=== PATIENT | female | born 1945 | race Caucasian/White ===

== ENCOUNTER 2019-12-25 10:44 | Emergency (ER) | payer MEDICARE, OTHER ==
[2019-12-25] MEDS ORDERED: Sodium Chloride 0.9% 10 ML Syringe FLUSH PRN (11:06)
[2019-12-25] MEDS ORDERED: Aspirin 81 MG Tab.Chew PO ONE (11:07)
[2019-12-25] MEDS ORDERED: Metoprolol Tartrate 5 MG/5 ML SDV IVPUSH ONE (11:26)
--- NOTE | 2019-12-25 11:26 | EDM.PDOC ---
ED HPI GENERAL MEDICAL PROBLEM - General Chief Complaint: Chest Pain Stated Complaint: CHEST PAIN Time Seen by Provider: 12/25/19 10:50 Source of Information: Reports: Patient History Limitations: Reports: No Limitations - History of Present Illness INITIAL COMMENTS - FREE TEXT/NARRATIVE: Pt. presents to ER with complaints of shortness of breath, L sided chest pain, and discomfort in the L upper extremity. Pt. states that she was cooking at the onset of the symptoms. Pt. states that the symptoms started with shortness of breath and chest discomfort, and the arm pain started shortly thereafter. Pt. states that by the time she got to ER, the symptoms were completely resolved. She states that she is feeling normal on initial exam. Pt. states that she was lightheaded, and states that she often experiences lightheadedness when she is bending over. Pt. states that she has been experiencing intermittent shortness of breath for several months. She complains of NELSON. Denies any leg swelling, palpitations, or chest pain prior to today. Pt. has a history of CAD and has a drug eluting stent in the L circumflex. She states that she failed a stress test prior to this. This was approx. 5 years ago. She states that she had 50% blockage to another vessel at that time as well. Pt. has a history of HTN and is on Toprol XL 25mg daily. She states that she took her medication this AM. Pt. also has a history of hyperlipidemia. She states that the discomfort today is was sharp, and did not radiate into her back or neck. She was not diaphoretic. Onset: Today Onset Date: 12/25/19 Location: Reports: Chest - Related Data Allergies Allergy/AdvReac Type Severity Reaction Status Date / Time No Known Drug Allergies Allergy Other Verified 12/25/19 11:02 Home Meds: Home Meds Aspirin [Ecotrin] 81 mg PO DAILY 09/26/14 [History] Multivitamin [Multi Vitamin Daily] 1 each PO DAILY 09/26/14 [History] EPINEPHrine [Epipen] 0.3 mg IM ASDIRECTED PRN 11/30/15 [History] Metoprolol Succinate [Toprol XL] 12.5 mg PO DAILY 11/30/15 [History] Nitroglycerin [Nitrostat] 0.4 mg SL Q5M PRN 11/30/15 [History] Ticagrelor [Brilinta] 90 mg PO BID 11/30/15 [History] atorvaSTATin Calcium [Atorvastatin Calcium] 80 mg PO BEDTIME 11/30/15 [History] ED ROS GENERAL - Review of Systems Review Of Systems: See Below Constitutional: Reports: No Symptoms HEENT: Reports: No Symptoms Respiratory: Reports: Shortness of Breath Cardiovascular: Reports: Chest Pain, Dyspnea on Exertion, Lightheadedness Endocrine: Reports: No Symptoms GI/Abdominal: Reports: No Symptoms : Reports: No Symptoms Musculoskeletal: Reports: Arm Pain Skin: Reports: No Symptoms Neurological: Reports: No Symptoms Psychiatric: Reports: No Symptoms Hematologic/Lymphatic: Reports: No Symptoms Immunologic: Reports: No Symptoms ED EXAM, GENERAL - Physical Exam Exam: See Below Exam Limited By: No Limitations General Appearance: Alert, WD/WN, No Apparent Distress Eye Exam: Bilateral Eye: EOMI, PERRL Head: Atraumatic, Normocephalic Neck: Normal Inspection, Supple, Non-Tender, Full Range of Motion Respiratory/Chest: No Respiratory Distress, Lungs Clear, Normal Breath Sounds, No Accessory Muscle Use, Chest Non-Tender Cardiovascular: Normal Peripheral Pulses, Regular Rate, Rhythm, No Edema, No JVD , No Murmur Peripheral Pulses: 4+: Radial (L) GI/Abdominal: Normal Bowel Sounds, Soft, Non-Tender, No Organomegaly, No Distention, No Mass (Female) Exam: Deferred Rectal (Female) Exam: Deferred Back Exam: Normal Inspection, Full Range of Motion Extremities: Normal Inspection, Normal Range of Motion, Non-Tender, No Pedal Edema, Normal Capillary Refill Neurological: Alert, Oriented, CN II-XII Intact, Normal Cognition, Normal Gait, Normal Reflexes, No Motor/Sensory Deficits Psychiatric: Normal Affect, Normal Mood Skin Exam: Warm, Dry, Intact, Normal Color, No Rash Lymphatic: No Adenopathy EKG INTERPRETATION Rhythm: NSR [place]: Normal P-Wave: Present QRS: Normal ST-T: Normal QT: Normal Course - Vital Signs Last Recorded V/S: Last Vital Signs Temp 36.8 C 12/25/19 10:48 Pulse 66 12/25/19 11:33 Resp 12 12/25/19 11:27 BP 198/100 H 12/25/19 11:33 Pulse Ox 98 12/25/19 11:27 - Orders/Labs/Meds Orders: Active Orders 24 hr Category Date Time Status EKG Documentation Completion [RC] STAT Care 12/25/19 11:06 Active COMPREHENSIVE METABOLIC PN,CMP [CHEM] Stat Lab 12/25/19 11:14 Received MAGNESIUM [CHEM] Stat Lab 12/25/19 11:14 Received PRO B-TYPE NATRIUR PEPT,BNPPRO [CHEM] Stat Lab 12/25/19 11:14 Received TSH ULTRASENSITIVE [CHEM] Stat Lab 12/25/19 11:14 Received Heparin Sodium/0.45% NaCl [Heparin 25,000 Units in 1/2 Med 12/25/19 12:15 Active NS 500 ML] 25,000 units in 500 ml IV STAT Nitroglycerin/D5W [Nitroglycerin 25 MG/D5W 250 ML] Med 12/25/19 12:15 Active 25 mg in 250 ml IV TITRATE Sodium Chloride 0.9% [Saline Flush] Med 12/25/19 11:06 Active 10 ml FLUSH ASDIRECTED PRN Peripheral IV Insertion Adult [OM.PC] Routine Oth 12/25/19 11:07 Ordered Medication Orders Nitroglycerin/Dextrose (Nitroglycerin 25 Mg/D5w 250 Ml) 25 mg in 250 mls @ 6 mls/hr IV TITRATE KAYLEEN; Protocol Heparin Sodium/Sodium Chloride (Heparin 25,000 Units In 1/2 Ns 500 Ml) 25,000 units in 500 mls @ 20 mls/hr IV STAT KAYLEEN; Protocol Sodium Chloride (Saline Flush) 10 ml FLUSH ASDIRECTED PRN PRN Reason: Keep Vein Open Labs: Laboratory Tests 12/25/19 12/25/19 12/25/19 Range/Units 11:14 11:14 12:11 WBC 7.0 (4.0-10.0) x10^3/uL RBC 4.41 (4.00-5.50) x10^6/uL Hgb 13.7 (12.0-16.0) g/dL Hct 40.2 (33.0-47.0) % MCV 91.2 (78.0-93.0) fL MCH 31.1 (26.0-32.0) pg MCHC 34.1 (32.0-36.0) g/dL RDW Coeff of Radha 13.4 (10.0-15.0) % Plt Count 277 (130-400) x10^3/uL Neut % (Auto) 43.1 L (50.0-80.0) % Lymph % (Auto) 43.7 (25.0-50.0) % Hinds % (Auto) 11.8 H (2.0-11.0) % Eos % (Auto) 1.0 (0.0-4.0) % Baso % (Auto) 0.4 (0.2-1.2) % PT 10.3 (10.0-12.8) SEC INR 0.9 L (2.0-3.5) D-Dimer, Quantitative 0.49 (<=0.58) mg/LFEU POC Troponin I 0.02 (0.00-0.08) ng/mL Meds: Medications Generic Name Dose Route Start Last Admin Trade Name Freq PRN Reason Stop Dose Admin Nitroglycerin/Dextrose 25 mg in 250 mls @ 6 mls/hr 12/25/19 12:15 Nitroglycerin 25 Mg/D5w 250 Ml IV TITRATE KAYLEEN Protocol 10 MCG/MIN Heparin Sodium/Sodium Chloride 25,000 units in 500 mls @ 20 mls/hr 12/25/19 12 :15 Heparin 25,000 Units In 1/2 Ns 500 Ml IV STAT KAYLEEN Protocol Sodium Chloride 10 ml 12/25/19 11:06 Saline Flush FLUSH ASDIRECTED PRN Keep Vein Open Discontinued Medications Generic Name Dose Route Start Last Admin Trade Name Freq PRN Reason Stop Dose Admin Aspirin 324 mg 12/25/19 11:07 12/25/19 10:55 Aspirin PO 12/25/19 11:08 324 mg ONETIME ONE Administration Heparin Sodium (Porcine) 4,000 units 12/25/19 12:02 12/25/19 12:38 Heparin Sodium IVPUSH 12/25/19 12:03 4,000 units .BOLUS ONE Administration Metoprolol Tartrate 5 mg 12/25/19 11:26 12/25/19 11:33 Lopressor IVPUSH 12/25/19 11:27 5 mg ONETIME ONE Administration Nitroglycerin 0.4 mg 12/25/19 11:40 Nitrostat SL 12/25/19 11:41 ONETIME ONE Departure - Departure Time of Disposition: 12:41 Disposition: DC/Tfer to Acute Hospital 02 Clinical Impression: Unstable angina - Discharge Information Referrals: Janeen La DO [Primary Care Provider] - Forms: ED Department Discharge Sepsis Event Note - Evaluation Sepsis Screening Result: No Definite Risk - Focused Exam Vital Signs: Vital Signs Temp Pulse Pulse Resp BP BP Pulse Ox 12/25/19 11:33 66 198/100 H 12/25/19 11:27 64 12 198/100 H 98 12/25/19 10:48 36.8 C 82 14 196/89 H 98 Date Exam was Performed: 12/25/19 Time Exam was Performed: 12:40 - Problem List Review Problem List Initiated/Reviewed/Updated: Yes - My Orders Last 24 Hours: My Active Orders 12/25/19 11:06 EKG Documentation Completion [RC] STAT Sodium Chloride 0.9% [Saline Flush] 10 ml FLUSH ASDIRECTED PRN 12/25/19 11:07 Peripheral IV Insertion Adult [OM.PC] Routine 12/25/19 11:14 COMPREHENSIVE METABOLIC PN,CMP [CHEM] Stat MAGNESIUM [CHEM] Stat PRO B-TYPE NATRIUR PEPT,BNPPRO [CHEM] Stat TSH ULTRASENSITIVE [CHEM] Stat 12/25/19 12:15 Heparin Sodium/0.45% NaCl [Heparin 25,000 Units in 1/2 NS 500 ML] 25,000 units in 500 ml IV STAT Nitroglycerin/D5W [Nitroglycerin 25 MG/D5W 250 ML] 25 mg in 250 ml IV TITRATE - Assessment/Plan Last 24 Hours: My Active Orders 12/25/19 11:06 EKG Documentation Completion [RC] STAT Sodium Chloride 0.9% [Saline Flush] 10 ml FLUSH ASDIRECTED PRN 12/25/19 11:07 Peripheral IV Insertion Adult [OM.PC] Routine 12/25/19 11:14 COMPREHENSIVE METABOLIC PN,CMP [CHEM] Stat MAGNESIUM [CHEM] Stat PRO B-TYPE NATRIUR PEPT,BNPPRO [CHEM] Stat TSH ULTRASENSITIVE [CHEM] Stat 12/25/19 12:15 Heparin Sodium/0.45% NaCl [Heparin 25,000 Units in 1/2 NS 500 ML] 25,000 units in 500 ml IV STAT Nitroglycerin/D5W [Nitroglycerin 25 MG/D5W 250 ML] 25 mg in 250 ml IV TITRATE Plan: Pt. will be transferred to [facility]. She was started on a nitro drip , as she had relief of her chest pain with oral NTG. Pt. was started on 10mcg/ min. and will be titrated until she is pain free. Pt. was heparinized with a 4000u heparin bolus and a 1000u/hr drip. I spoke with Dr. Mcwilliams who accepts the patient in transfer. Pt. will be transported via [facility] ground ambulance.
[2019-12-25] MEDS ORDERED: Nitroglycerin 0.4 MG Tab.SL SL ONE (11:40)
[2019-12-25] MEDS ORDERED: Heparin Sodium 5,000 Units/ML Vial IVPUSH ONE (12:02)
[2019-12-25] MEDS ORDERED: Heparin Sodium/0.45% NaCl 25,000 UNITS/500 ML BAG IV SCH (12:15)
[2019-12-25] MEDS ORDERED: Nitroglycerin/D5W 25 MG/250 ML BOTTLE IV SCH (12:15)
[2019-12-25 13:06] VITALS: BP 173/85; PULSE 64
[2019-12-25 13:38] LABS: ANION GAP 14.8 mmol/L (10-20); CHLORIDE,CL 102 mmol/L (98-107); SODIUM,NA 139 mmol/L (136-145)
== END 2019-12-25 13:45 | disposition short-term general hospital (02) ==
LOC: VM.ED 10:44
DX: I20.0 Unstable angina (principal); Z79.82 Long term (current) use of aspirin; Z79.899 Other long term (current) drug therapy
CPT/HCPCS: 36415; 80053; 83735; 83880; 84443; 84484; 85025; 85379; 85610; 93005; 93010; 96365; 96368; 99283; 99285; A9270; J1644; J3490

== ENCOUNTER 2019-12-30 21:08 | Observation (INO) | payer MEDICARE, OTHER ==
[2019-12-30] MEDS ORDERED: Aspirin 81 MG Tab.Chew PO STA (22:02)
[2019-12-30] MEDS ORDERED: cloNIDine 0.1 MG Tab PO ONE (22:35)
[2019-12-30] MEDS ORDERED: amLODIPine 5 MG Tab PO STA (22:35)
--- NOTE | 2019-12-30 22:56 | EDM.PDOC ---
ED HPI GENERAL MEDICAL PROBLEM - General Chief Complaint: Cardiovascular Problem Stated Complaint: BP Time Seen by Provider: 12/30/19 22:10 Source of Information: Reports: Patient History Limitations: Reports: No Limitations - History of Present Illness INITIAL COMMENTS - FREE TEXT/NARRATIVE: Patient comes emergency department today from home with complaints of high blood pressure and "funny" numbness sensation to her left arm. Patient recently was seen in the emergency department here in [place] for similar symptomology of chest pain and hypertension. She was transferred for [facility] for further evaluation and was discharged next morning. She is to follow- up with her primary care provider for hypertension management. She has been watching her blood pressure closely over the past few days checking it twice a day. Gigi her son called her and asked her what her blood pressure was so she checked it and she noticed it was quite high. She then started to get quite worried. Her blood pressure at that time was 192/93 and went up to 202 sustolically with a pulse rate of 76. Then became quite anxious. She started feeling some tightness "funny" numbness sensation in her left arm. No pain in her chest. No pressure. No sharp shooting stabbing pain. She did complain of some shortness of breath but this is something that has been going more frequently over the past few weeks with physical activity. She did walk 1/2 mile on the treadmill today without any CP or radiation of numbness SOB or diaphoresis. No diaphoresis. No nausea no vomiting. No palpitations. No weakness dizziness lightheadedness. No syncope. She has no headache no visual disturbances. NO Paresthesias of the upper or lower extremities. No nausea vomiting fever chills. No hematuria dysuria urinary frequency. No diarrhea. Not have any medication changes in her hospitalization in [place]. She was set up for a [facility]. She has not had any chest pain or arm sensation over the past few days but SOB with increased physical activity although not when walking on the treadmill. - Related Data Allergies Allergy/AdvReac Type Severity Reaction Status Date / Time No Known Drug Allergies Allergy Other Verified 12/30/19 22:25 Home Meds: Home Meds Aspirin [Ecotrin] 81 mg PO DAILY 09/26/14 [History] Multivitamin [Multi Vitamin Daily] 1 each PO DAILY 09/26/14 [History] Metoprolol Succinate [Toprol XL] 12.5 mg PO DAILY 11/30/15 [History] Nitroglycerin [Nitrostat] 0.4 mg SL Q5M PRN 11/30/15 [History] atorvaSTATin Calcium [Atorvastatin Calcium] 10 mg PO BEDTIME 11/30/15 [History] Past Medical History Cardiovascular History: Reports: CAD, Hypertension, Stents Endocrine/Metabolic History: Reports: Osteopenia - Past Surgical History Cardiovascular Surgical History: Reports: Coronary Artery Stent ED ROS GENERAL - Review of Systems Review Of Systems: Comprehensive ROS is negative, except as noted in HPI. ED EXAM, GENERAL - Physical Exam Exam: See Below Exam Limited By: No Limitations General Appearance: Alert, WD/WN, No Apparent Distress Eye Exam: Bilateral Eye: EOMI, PERRL Ears: Normal External Exam, Normal Canal, Hearing Grossly Normal, Normal TMs Nose: Normal Inspection, Normal Mucosa Throat/Mouth: Normal Inspection, Normal Lips, Normal Oropharynx, Normal Voice, No Airway Compromise Head: Atraumatic, Normocephalic Neck: Normal Inspection, Supple, Non-Tender. No: Carotid Bruit, Lymphadenopathy (L), Lymphadenopathy (R) Respiratory/Chest: No Respiratory Distress, Lungs Clear, Normal Breath Sounds, No Accessory Muscle Use, Chest Non-Tender Cardiovascular: Normal Peripheral Pulses, Regular Rate, Rhythm, No Edema, No Gallop, No JVD, No Murmur, No Rub Peripheral Pulses: 2+: Radial (L), Radial (R), Posterior Tibial (L), Posterior Tibial (R), Dorsalis Pedis (L), Dorsalis Pedis (R) GI/Abdominal: Normal Bowel Sounds, Soft, Non-Tender, No Organomegaly, No Distention Back Exam: Normal Inspection, Full Range of Motion. No: CVA Tenderness (L), CVA Tenderness (R) Extremities: Normal Inspection, Normal Range of Motion, Non-Tender, No Pedal Edema, Normal Capillary Refill Neurological: Alert, Oriented, Normal Cognition, Normal Gait, No Motor/Sensory Deficits Psychiatric: Normal Affect, Normal Mood Skin Exam: Warm, Dry, Intact, Normal Color, No Rash Lymphatic: No Adenopathy EKG INTERPRETATION EKG Date: 12/30/19 Time: 09:25 Rhythm: NSR Rate (Beats/Min): 67 [place]: Normal P-Wave: Present QRS: Normal ST-T: Normal QT: Normal Comparison: No Change Course - Vital Signs Last Recorded V/S: Last Vital Signs Temp 36.6 C 12/30/19 22:27 Pulse 63 12/30/19 23:27 Resp 14 12/30/19 23:27 BP 173/77 H 12/30/19 23:27 Pulse Ox 98 12/30/19 23:27 - Orders/Labs/Meds Orders: Active Orders 24 hr Category Date Time Status EKG 12 Lead [EKG Documentation Completion] [RC] STAT Care 12/30/19 21:25 Active EKG Documentation Completion [RC] STAT Care 12/31/19 00:34 Ordered Lactated Ringers [Ringers, Lactated] 1,000 ml Med 12/31/19 00:39 Ordered IV ONETIME Sodium Chloride 0.9% [Saline Flush] Med 12/30/19 23:45 Active 10 ml FLUSH ASDIRECTED PRN Peripheral IV Insertion Adult [OM.PC] Stat Oth 12/30/19 23:45 Ordered Medication Orders Lactated Ringer's (Ringers, Lactated) 1,000 mls @ 999 mls/hr IV ONETIME ONE Stop: 12/31/19 01:39 Sodium Chloride (Saline Flush) 10 ml FLUSH ASDIRECTED PRN PRN Reason: Keep Vein Open Labs: Laboratory Tests 12/30/19 12/30/19 12/30/19 Range/Units 21:40 22:40 22:40 WBC 7.2 (4.0-10.0) x10^3/uL RBC 4.24 (4.00-5.50) x10^6/uL Hgb 13.0 (12.0-16.0) g/dL Hct 38.6 (33.0-47.0) % MCV 91.0 (78.0-93.0) fL MCH 30.7 (26.0-32.0) pg MCHC 33.7 (32.0-36.0) g/dL RDW Coeff of Radha 13.2 (10.0-15.0) % Plt Count 244 (130-400) x10^3/uL Neut % (Auto) 32.0 L (50.0-80.0) % Lymph % (Auto) 55.7 H (25.0-50.0) % Posey % (Auto) 10.2 (2.0-11.0) % Eos % (Auto) 1.7 (0.0-4.0) % Baso % (Auto) 0.4 (0.2-1.2) % Sodium 140 (136-145) mmol/L Potassium 4.2 (3.5-5.1) mmol/L Chloride 103 (98-107) mmol/L Carbon Dioxide 26 (21-32) mmol/L Anion Gap 15.2 (10-20) mmol/L BUN 12 (7-18) mg/dL Creatinine 0.8 (0.55-1.02) mg/dL Est Cr Clr Drug Dosing 57.75 mL/min Estimated GFR (MDRD) > 60 Glucose 99 (74-106) mg/dL Calcium 9.1 (8.5-10.1) mg/dL Corrected Calcium 9.18 (8.5-10.1) mg/dL Total Bilirubin 0.3 (0.2-1.0) mg/dL AST 40 H (15-37) U/L ALT 59 (14-59) U/L Alkaline Phosphatase 76 (46-116) U/L Troponin I < 0.017 (<=0.056) ng/mL NT-Pro-B Natriuret Pep 175 H (<=125) pg/mL Total Protein 7.4 (6.4-8.2) g/dL Albumin 3.9 (3.4-5.0) g/dL Globulin 3.5 Albumin/Globulin Ratio 1.11 Urine Color (YELLOW) Urine Appearance (CLEAR) Urine pH (5.0-8.0) Ur Specific [place] Urine Protein (NEGATIVE) mg/dL Urine Glucose (UA) (NEGATIVE) mg/dL Urine Ketones (NEGATIVE) mg/dL Urine Occult Blood (NEGATIVE) Urine Nitrite (NEGATIVE) Urine Bilirubin (NEGATIVE) Urine Urobilinogen (0.2) EU/dL Ur Leukocyte Esterase (NEGATIVE) Urine RBC (NOT SEEN) /HPF Urine WBC (NOT SEEN) /HPF Ur Squamous Epith Cells (NEGATIVE) /HPF Urine Bacteria (NEGATIVE) /HPF Urine Mucus (NEGATIVE) /LPF 12/30/19 Range/Units 22:50 WBC (4.0-10.0) x10^3/uL RBC (4.00-5.50) x10^6/uL Hgb (12.0-16.0) g/dL Hct (33.0-47.0) % MCV (78.0-93.0) fL MCH (26.0-32.0) pg MCHC (32.0-36.0) g/dL RDW Coeff of Radha (10.0-15.0) % Plt Count (130-400) x10^3/uL Neut % (Auto) (50.0-80.0) % Lymph % (Auto) (25.0-50.0) % Posey % (Auto) (2.0-11.0) % Eos % (Auto) (0.0-4.0) % Baso % (Auto) (0.2-1.2) % Sodium (136-145) mmol/L Potassium (3.5-5.1) mmol/L Chloride (98-107) mmol/L Carbon Dioxide (21-32) mmol/L Anion Gap (10-20) mmol/L BUN (7-18) mg/dL Creatinine (0.55-1.02) mg/dL Est Cr Clr Drug Dosing mL/min Estimated GFR (MDRD) Glucose (74-106) mg/dL Calcium (8.5-10.1) mg/dL Corrected Calcium (8.5-10.1) mg/dL Total Bilirubin (0.2-1.0) mg/dL AST (15-37) U/L ALT (14-59) U/L Alkaline Phosphatase (46-116) U/L Troponin I (<=0.056) ng/mL NT-Pro-B Natriuret Pep (<=125) pg/mL Total Protein (6.4-8.2) g/dL Albumin (3.4-5.0) g/dL Globulin Albumin/Globulin Ratio Urine Color Light yellow (YELLOW) Urine Appearance Clear (CLEAR) Urine pH 5.5 (5.0-8.0) Ur Specific [place] 1.010 Urine Protein Negative (NEGATIVE) mg/dL Urine Glucose (UA) Negative (NEGATIVE) mg/dL Urine Ketones Negative (NEGATIVE) mg/dL Urine Occult Blood Negative (NEGATIVE) Urine Nitrite Negative (NEGATIVE) Urine Bilirubin Negative (NEGATIVE) Urine Urobilinogen 0.2 (0.2) EU/dL Ur Leukocyte Esterase Negative (NEGATIVE) Urine RBC 0-5 (NOT SEEN) /HPF Urine WBC Not seen (NOT SEEN) /HPF Ur Squamous Epith Cells Occasional H (NEGATIVE) /HPF Urine Bacteria Not seen (NEGATIVE) /HPF Urine Mucus Rare H (NEGATIVE) /LPF Meds: Medications Generic Name Dose Route Start Last Admin Trade Name Tuan PRN Reason Stop Dose Admin Lactated Ringer's 1,000 mls @ 999 mls/hr 12/31/19 00:39 Ringers, Lactated IV 12/31/19 01:39 ONETIME ONE Sodium Chloride 10 ml 12/30/19 23:45 Saline Flush FLUSH ASDIRECTED PRN Keep Vein Open Discontinued Medications Generic Name Dose Route Start Last Admin Trade Name Tuan PRN Reason Stop Dose Admin Amlodipine Besylate 5 mg 12/30/19 22:35 12/30/19 22:47 Norvasc PO 12/30/19 22:36 5 mg NOW STA Administration Aspirin 324 mg 12/30/19 22:02 12/30/19 22:09 Aspirin PO 12/30/19 22:03 324 mg ONETIME STA Administration Clonidine HCl 0.1 mg 12/30/19 22:35 12/30/19 22:47 Catapres PO 12/30/19 22:36 0.1 mg ONETIME ONE Administration Nitroglycerin 0.4 mg 12/30/19 23:45 Nitrostat SL 12/30/19 23:46 ONETIME ONE Ondansetron HCl 4 mg 12/31/19 00:17 Zofran IV 12/31/19 00:18 ONETIME ONE - Re-Assessments/Exams Free Text/Narrative Re-Assessment/Exam: 12/30/19 23:36 Aspirin given orally. EKG negative for ST elevation. Her BP did stay quite elevated while in the ED. I did review her medication list and she is really not on anything primarily for hypertension just a slash of Metoprolol Succ. Her systolic did stay in the 210s. Labs are really unremarkable with a normal Creat/BUN no protein in the urine. No signs of end organ damage otherwise. BNp 170s I did give her a dose of Amlodipine as well as Clonidine in the ED. Despite the ACEP stance on asymptomatic hypertension in the ED I did review her BP reading from home and she has been trending 140s systolically up to 202 systolically with 70s-95 diastolically. 12/30/19 23:49 The patient has not complained of any chest pain shortness of breath or the sensation in her left arm for the entirety of her ER visit. Her blood pressure is improved down to 171/87 with a heart rate in the mid 60s. Although she has developed this left arm numbness sensation. No pain into her back or her jaw. No diaphoresis. I did review her discharge summary from [facility] on 2019. Where she had trending of her troponin which was negative. She only required 1 single dose of amlodipine and 1 dose of hydralazine during the night and her blood pressure then stayed in the 130s-90s. There was quite a bit of concern for this patient's anxiety causing her hypertension although it is known that she has a left circumflex drug-eluting stent as well as another vessel with approximate 50% narrowing. She has not had her stress test completed since discharge. I will try a dose of nitro to see if this resolves the left arm sensation. Repeat troponin as well at the three hour time period. Patient is comfortable with this plan. 12/31/19 00:40 The patient did drop her blood pressure to the 70s systolically after the nitro and Hrt rate to the 50s. No syncope. With fluids bolus she recovered her blood pressure. No arm pain. Repeat EKG no ST elevation or depression. I do have concerns for hypertensive urgency causing coronary strain or angina. With the known history of vessel narrowing without further eval and this presentation I wonder if this isn't right heart vs cardiac strain causing angina due to the severe hypertension. I called and spoke with the hospitalist performance improvement consultant at [facility] in [place] Dr. Patel. HPI ER Course findings and concerns were relayed to him. He agrees with my concerns and at this time no transfer unless things change control the blood pressure and trend her troponins and see where it goes. I discussed the findings with the patient and my concerns and the consultation with the hospitalist she is comfortable with the plan and her questions are answered. She was also aware of the option for transfer at this time was also offered from [facility] but she is comfortable and okay with the plan to stay here and if any concerns arise will consult with [place] again. Her questions were answered and she is comfortable with this plan. Departure - Departure Time of Disposition: 00:59 Disposition: Refer to Observation Clinical Impression: Hypertensive urgency, Anginal pain Referrals: Janeen La DO [Primary Care Provider] - Forms: ED Department Discharge Sepsis Event Note - Evaluation Sepsis Screening Result: No Definite Risk - Focused Exam Vital Signs: Vital Signs Temp Pulse Resp BP BP Pulse Ox 12/30/19 23:27 63 14 173/77 H 98 12/30/19 22:57 65 14 188/98 H 99 12/30/19 22:47 220/110 H 12/30/19 22:32 75 12 220/110 H 95 12/30/19 22:27 36.6 C 98 16 231/124 H 98 12/30/19 22:11 68 11 L 182/96 H 95 12/30/19 21:50 77 16 174/89 H 98 12/30/19 21:30 67 17 193/92 H 97 Date Exam was Performed: 12/31/19 Time Exam was Performed: 00:40 - Problem List Review Problem List Initiated/Reviewed/Updated: Yes - My Orders Last 24 Hours: My Active Orders 12/30/19 21:25 EKG 12 Lead [EKG Documentation Completion] [RC] STAT 12/30/19 23:45 Sodium Chloride 0.9% [Saline Flush] 10 ml FLUSH ASDIRECTED PRN Peripheral IV Insertion Adult [OM.PC] Stat 12/31/19 00:34 EKG Documentation Completion [RC] STAT 12/31/19 00:39 Lactated Ringers [Ringers, Lactated] 1,000 ml IV ONETIME - Assessment/Plan Admission H&P: Please use this note as an admission H&P Last 24 Hours: My Active Orders 12/30/19 21:25 EKG 12 Lead [EKG Documentation Completion] [RC] STAT 12/30/19 23:45 Sodium Chloride 0.9% [Saline Flush] 10 ml FLUSH ASDIRECTED PRN Peripheral IV Insertion Adult [OM.PC] Stat 12/31/19 00:34 EKG Documentation Completion [RC] STAT 12/31/19 00:39 Lactated Ringers [Ringers, Lactated] 1,000 ml IV ONETIME Assessment:: Hypertensive urgency, No evidence of end organ damage. Not currently on anything for blood pressure. Is on Metoprolol. Angina, most likely due to the hypertensive urgency normal EKGs and troponins CAD Hx of Hyperlipidemia Hx of Cardiac stent. Plan: Admit OBS my service. Hypertensive urgency: Start amlodipine 5mg po qd. Hydralazine 10mg q6hrs IVP for SBP > 180mmhg. Telemetry. Angina: daily aspirin will trend troponin and also EKG in the am. Hx Hyperlipidemia continue atorvastatin. Lipid panel in the morning. Hx CAD with stenting not currently on plavix or Brilinta. Continue on previous therapies. If any problems will contact [place].
[2019-12-30 23:13] LABS: ANION GAP 15.2 mmol/L (10-20); CHLORIDE,CL 103 mmol/L (98-107); SODIUM,NA 140 mmol/L (136-145)
[2019-12-30] MEDS ORDERED: Sodium Chloride 0.9% 10 ML Syringe FLUSH PRN (23:45)
[2019-12-30] MEDS ORDERED: Nitroglycerin 0.4 MG Tab.SL SL ONE (23:45)
[2019-12-31] MEDS ORDERED: Ondansetron 4 MG/2 ML SDV IV ONE (00:17)
[2019-12-31] MEDS ORDERED: Lactated Ringers 1,000 ML IV ONE (00:39)
[2019-12-31] MEDS ORDERED: hydrALAZINE 20 MG/ML SDV IVPUSH PRN (01:39)
[2019-12-31 03:50] LABS: PTT,PARTIAL THROMBOPLSTIN TIME 21.4 SEC (24.0-36.0)
[2019-12-31] MEDS ORDERED: Multivitamins with Iron/Calcium/Folic Acid/Minerals Tab PO SCH (08:00)
[2019-12-31] MEDS ORDERED: Aspirin 81 MG Tab.EC PO SCH (08:00)
[2019-12-31] MEDS ORDERED: Metoprolol Succinate 25 MG Tab.ER PO SCH (08:00)
--- NOTE | 2019-12-31 09:01 | CR ---
[id number] RAD/RAD Chest PA And Lateral EXAM: FRONTAL AND LATERAL CHEST INDICATION: Shortness of breath and chest pain. COMPARISON: CT November 03, 2015. DISCUSSION: Mild peripheral left base atelectasis or infiltrates are suggested. The right lung is clear. The heart is normal in size. Left axillary clips. IMPRESSION: 1. Mild peripheral left base infiltrates and/or atelectasis are suggested. Lorenzo Mendez MD 12/31/19 0900 Thank you for allowing us to participate in the care of your patient.
[2019-12-31 17:53] VITALS: BP 133/58; PULSE 63
--- NOTE | 2019-12-31 19:04 | PCM.DCSUM1 ---
Discharge Summary - Hospital Course Free Text/Narrative:: Patient was admitted in the hospital under observation for hypertensive urgency without any evidence of end organ damage and questionable angina. She was not heparinized as she did not have any chest pain but had some vague left arm intermittent numbness. She does have a history of a circumflex stent drug- eluting as well as 50% narrowing of another coronary vessel unknown at the time. He is supposed to be having a Lexiscan in the near future. She was started on amlodipine in the emergency department for her quite high blood pressure documented of 220/110. She had not previously been on any blood pressure medications despite being recently hospitalized for hypertensive urgency as well. She is currently only on 12.5 mg of metoprolol succinate following cardiac stenting. We trended her troponin throughout the night in the morning and her troponin stayed less than 0.017. She did not require any IV hydralazine for systolic blood pressures over 180. She did not have any chest pain shortness of breath paresthesias or numbness to her left arm during her hospitalization. Her blood pressure was well controlled with a single dose of 5 mg amlodipine. She was monitored most of the day without any complaints. Her blood pressure improved to the 130s over 80s. Cholesterol panel shows a triglyceride of 77 cholesterol 128 LDL 67 and HDL 46. There was some concern of her previous hospitalization at [facility] in [place] that her high blood pressure could be related to anxiety. Although I do not see any evidence of anxiety at this time she has responded quite well to the amlodipine. We will work on getting her Evelia scan set up for her and she does have a follow-up with her primary care on Sunday Dr. Hannah La. Patient is comfortable with this plan and her questions are answered. We will discharge her home at this time she is comfortable with this plan Hypertensive urgency: Resolved. Continue amlodipine 5 mg p.o. daily. Angina: No evidence during the hospitalization normal troponin trending. Continue with the aspirin therapy at home. Continue with the metoprolol at home. We will work on getting your Evelia scan set up. Hx Hyperlipidemia continue atorvastatin. Lipid panel is well controlled. Although she is on a rather low dose of atorvastatin 10 mg at at bedtime. Consideration for maximization of therapy despite numbers as recommended by [employer] would be recommended for the prevention of further plaque deposition. Hx CAD with stenting not currently on plavix or Brilinta. Continue on previous therapies. HPI Initial Comments: Patient comes emergency department today from home with complaints of high blood pressure and "funny" numbness sensation to her left arm. Patient recently was seen in the emergency department here in [place] for similar symptomology of chest pain and hypertension. She was transferred for [facility] for further evaluation and was discharged next morning. She is to follow- up with her primary care provider for hypertension management. She has been watching her blood pressure closely over the past few days checking it twice a day. Gigi her son called her and asked her what her blood pressure was so she checked it and she noticed it was quite high. She then started to get quite worried. Her blood pressure at that time was 192/93 and went up to 202 sustolically with a pulse rate of 76. Then became quite anxious. She started feeling some tightness "funny" numbness sensation in her left arm. No pain in her chest. No pressure. No sharp shooting stabbing pain. She did complain of some shortness of breath but this is something that has been going more frequently over the past few weeks with physical activity. She did walk 1/2 mile on the treadmill today without any CP or radiation of numbness SOB or diaphoresis. No diaphoresis. No nausea no vomiting. No palpitations. No weakness dizziness lightheadedness. No syncope. She has no headache no visual disturbances. NO Paresthesias of the upper or lower extremities. No nausea vomiting fever chills. No hematuria dysuria urinary frequency. No diarrhea. Not have any medication changes in her hospitalization in [place]. She was set up for a Lexiscan. She has not had any chest pain or arm sensation over the past few days but SOB with increased physical activity although not when walking on the treadmill. - Discharge Data Discharge Date: 12/31/19 Discharge Disposition: Home, Self-Care 01 Condition: Good - Referral to Home Health Primary Care Physician: Janeen La, DO - Patient Instructions Diet: Heart Healthy Diet Driving: May Drive Today Showering/Bathing: May Shower Other/Special Instructions: Continue previous therapies as previous. Continue with blood pressure monitoring. We will work on your stress test tomorrow to get that set up. Start Amlodipine 5mg once a day starting tomorrow. RX to [facility]. Follow up with Dr. Romero La on sunday. Make position changes slowly when standing up until you have been on the blood pressure medication for a while. - Discharge Plan *PRESCRIPTION DRUG MONITORING PROGRAM REVIEWED*: Not Applicable *COPY OF PRESCRIPTION DRUG MONITORING REPORT IN PATIENT YAMILEX: Not Applicable Prescriptions/Med Rec: amLODIPine [Norvasc] 5 mg PO DAILY #30 tab Home Medications: Home Meds Aspirin [Ecotrin] 81 mg PO DAILY 09/26/14 [History] Multivitamin [Multi Vitamin Daily] 1 each PO DAILY 09/26/14 [History] Metoprolol Succinate [Toprol XL] 12.5 mg PO DAILY 11/30/15 [History] Nitroglycerin [Nitrostat] 0.4 mg SL Q5M PRN 11/30/15 [History] atorvaSTATin Calcium [Atorvastatin Calcium] 10 mg PO BEDTIME 11/30/15 [History] Acetaminophen/Diphenhydramine [Tylenol Pm Ex-Strength Caplet] 2 tab PO BEDTIME PRN 12/31/19 [History] Melatonin 3 mg PO BEDTIME PRN 12/31/19 [History] amLODIPine [Norvasc] 5 mg PO DAILY #30 tab 12/31/19 [Rx] diphenhydrAMINE [Benadryl] 25 - 50 mg PO ASDIRECTED PRN 12/31/19 [History] Patient Handouts: Preventing Hypertension Forms: ED Department Discharge Referrals: Janeen La DO [Primary Care Provider] - - Discharge Summary/Plan Comment DC Time >30 min.: Yes - General Info Date of Service: 12/31/19 Admission Dx/Problem (Free Text: Tensive urgency, angina, history of hyperlipidemia, history of coronary artery disease with stenting Subjective Update: The patient has rested well throughout the day. She has had no anxiety type symptoms. She has been eating and drinking appropriately. She has had no chest pain or shortness of breath or difficulty breathing. No paresthesias or numbness to her left arm as she has had previously. No weakness dizziness lightheadedness. No palpitations. No headache. No visual disturbances. No change in the functionality of her upper or lower extremities. No abdominal pain no nausea or vomiting. No hematuria dysuria or urinary frequency. She has slept well throughout the night and actually feels very well. Functional Status: Reports: Pain Controlled - Patient Data Vitals - Most Recent: Last Vital Signs Temp 37.1 C 12/31/19 17:53 Pulse 63 12/31/19 17:53 Resp 12 12/31/19 17:53 BP 133/58 L 12/31/19 17:53 Pulse Ox 95 12/31/19 17:53 Weight - Most Recent: 68.492 kg I&O - Last 24 hours: Intake & Output 12/31/19 12/31/19 12/31/19 06:59 14:59 22:59 Intake Total 120 Balance 120 Lab Results - Last 24 hrs: Laboratory Results - last 24 hr 12/30/19 12/30/19 12/30/19 Range/Units 21:40 22:40 22:40 WBC 7.2 (4.0-10.0) x10^3/uL RBC 4.24 (4.00-5.50) x10^6/uL Hgb 13.0 (12.0-16.0) g/dL Hct 38.6 (33.0-47.0) % MCV 91.0 (78.0-93.0) fL MCH 30.7 (26.0-32.0) pg MCHC 33.7 (32.0-36.0) g/dL RDW Coeff of Radha 13.2 (10.0-15.0) % Plt Count 244 (130-400) x10^3/uL Neut % (Auto) 32.0 L (50.0-80.0) % Lymph % (Auto) 55.7 H (25.0-50.0) % Smith % (Auto) 10.2 (2.0-11.0) % Eos % (Auto) 1.7 (0.0-4.0) % Baso % (Auto) 0.4 (0.2-1.2) % PT (10.0-12.8) SEC INR (2.0-3.5) APTT (24.0-36.0) SEC Sodium 140 (136-145) mmol/L Potassium 4.2 (3.5-5.1) mmol/L Chloride 103 (98-107) mmol/L Carbon Dioxide 26 (21-32) mmol/L Anion Gap 15.2 (10-20) mmol/L BUN 12 (7-18) mg/dL Creatinine 0.8 (0.55-1.02) mg/dL Est Cr Clr Drug Dosing 57.75 mL/min Estimated GFR (MDRD) > 60 Glucose 99 (74-106) mg/dL Calcium 9.1 (8.5-10.1) mg/dL Corrected Calcium 9.18 (8.5-10.1) mg/dL Total Bilirubin 0.3 (0.2-1.0) mg/dL AST 40 H (15-37) U/L ALT 59 (14-59) U/L Alkaline Phosphatase 76 (46-116) U/L Troponin I < 0.017 (<=0.056) ng/mL NT-Pro-B Natriuret Pep 175 H (<=125) pg/mL Total Protein 7.4 (6.4-8.2) g/dL Albumin 3.9 (3.4-5.0) g/dL Globulin 3.5 Albumin/Globulin Ratio 1.11 Triglycerides (0-149) mg/dL Cholesterol (0-199) mg/dL LDL Cholesterol, Calc (0-130) mg/dL HDL Cholesterol (40-59) mg/dL Urine Color (YELLOW) Urine Appearance (CLEAR) Urine pH (5.0-8.0) Ur Specific Leroy Urine Protein (NEGATIVE) mg/dL Urine Glucose (UA) (NEGATIVE) mg/dL Urine Ketones (NEGATIVE) mg/dL Urine Occult Blood (NEGATIVE) Urine Nitrite (NEGATIVE) Urine Bilirubin (NEGATIVE) Urine Urobilinogen (0.2) EU/dL Ur Leukocyte Esterase (NEGATIVE) Urine RBC (NOT SEEN) /HPF Urine WBC (NOT SEEN) /HPF Ur Squamous Epith Cells (NEGATIVE) /HPF Urine Bacteria (NEGATIVE) /HPF Urine Mucus (NEGATIVE) /LPF 12/30/19 12/30/19 12/31/19 Range/Units 22:40 22:50 03:20 WBC (4.0-10.0) x10^3/uL RBC (4.00-5.50) x10^6/uL Hgb (12.0-16.0) g/dL Hct (33.0-47.0) % MCV (78.0-93.0) fL MCH (26.0-32.0) pg MCHC (32.0-36.0) g/dL RDW Coeff of Radha (10.0-15.0) % Plt Count (130-400) x10^3/uL Neut % (Auto) (50.0-80.0) % Lymph % (Auto) (25.0-50.0) % Smith % (Auto) (2.0-11.0) % Eos % (Auto) (0.0-4.0) % Baso % (Auto) (0.2-1.2) % PT 10.7 (10.0-12.8) SEC INR 0.9 L (2.0-3.5) APTT 21.4 L (24.0-36.0) SEC Sodium (136-145) mmol/L Potassium (3.5-5.1) mmol/L Chloride (98-107) mmol/L Carbon Dioxide (21-32) mmol/L Anion Gap (10-20) mmol/L BUN (7-18) mg/dL Creatinine (0.55-1.02) mg/dL Est Cr Clr Drug Dosing mL/min Estimated GFR (MDRD) Glucose (74-106) mg/dL Calcium (8.5-10.1) mg/dL Corrected Calcium (8.5-10.1) mg/dL Total Bilirubin (0.2-1.0) mg/dL AST (15-37) U/L ALT (14-59) U/L Alkaline Phosphatase (46-116) U/L Troponin I < 0.017 (<=0.056) ng/mL NT-Pro-B Natriuret Pep (<=125) pg/mL Total Protein (6.4-8.2) g/dL Albumin (3.4-5.0) g/dL Globulin Albumin/Globulin Ratio Triglycerides (0-149) mg/dL Cholesterol (0-199) mg/dL LDL Cholesterol, Calc (0-130) mg/dL HDL Cholesterol (40-59) mg/dL Urine Color Light yellow (YELLOW) Urine Appearance Clear (CLEAR) Urine pH 5.5 (5.0-8.0) Ur Specific Leroy 1.010 Urine Protein Negative (NEGATIVE) mg/dL Urine Glucose (UA) Negative (NEGATIVE) mg/dL Urine Ketones Negative (NEGATIVE) mg/dL Urine Occult Blood Negative (NEGATIVE) Urine Nitrite Negative (NEGATIVE) Urine Bilirubin Negative (NEGATIVE) Urine Urobilinogen 0.2 (0.2) EU/dL Ur Leukocyte Esterase Negative (NEGATIVE) Urine RBC 0-5 (NOT SEEN) /HPF Urine WBC Not seen (NOT SEEN) /HPF Ur Squamous Epith Cells Occasional H (NEGATIVE) /HPF Urine Bacteria Not seen (NEGATIVE) /HPF Urine Mucus Rare H (NEGATIVE) /LPF 12/31/19 Range/Units 06:30 WBC (4.0-10.0) x10^3/uL RBC (4.00-5.50) x10^6/uL Hgb (12.0-16.0) g/dL Hct (33.0-47.0) % MCV (78.0-93.0) fL MCH (26.0-32.0) pg MCHC (32.0-36.0) g/dL RDW Coeff of Radha (10.0-15.0) % Plt Count (130-400) x10^3/uL Neut % (Auto) (50.0-80.0) % Lymph % (Auto) (25.0-50.0) % Smith % (Auto) (2.0-11.0) % Eos % (Auto) (0.0-4.0) % Baso % (Auto) (0.2-1.2) % PT (10.0-12.8) SEC INR (2.0-3.5) APTT (24.0-36.0) SEC Sodium (136-145) mmol/L Potassium (3.5-5.1) mmol/L Chloride (98-107) mmol/L Carbon Dioxide (21-32) mmol/L Anion Gap (10-20) mmol/L BUN (7-18) mg/dL Creatinine (0.55-1.02) mg/dL Est Cr Clr Drug Dosing mL/min Estimated GFR (MDRD) Glucose (74-106) mg/dL Calcium (8.5-10.1) mg/dL Corrected Calcium (8.5-10.1) mg/dL Total Bilirubin (0.2-1.0) mg/dL AST (15-37) U/L ALT (14-59) U/L Alkaline Phosphatase (46-116) U/L Troponin I < 0.017 (<=0.056) ng/mL NT-Pro-B Natriuret Pep (<=125) pg/mL Total Protein (6.4-8.2) g/dL Albumin (3.4-5.0) g/dL Globulin Albumin/Globulin Ratio Triglycerides 77 (0-149) mg/dL Cholesterol 128 (0-199) mg/dL LDL Cholesterol, Calc 67 (0-130) mg/dL HDL Cholesterol 46 (40-59) mg/dL Urine Color (YELLOW) Urine Appearance (CLEAR) Urine pH (5.0-8.0) Ur Specific Leroy Urine Protein (NEGATIVE) mg/dL Urine Glucose (UA) (NEGATIVE) mg/dL Urine Ketones (NEGATIVE) mg/dL Urine Occult Blood (NEGATIVE) Urine Nitrite (NEGATIVE) Urine Bilirubin (NEGATIVE) Urine Urobilinogen (0.2) EU/dL Ur Leukocyte Esterase (NEGATIVE) Urine RBC (NOT SEEN) /HPF Urine WBC (NOT SEEN) /HPF Ur Squamous Epith Cells (NEGATIVE) /HPF Urine Bacteria (NEGATIVE) /HPF Urine Mucus (NEGATIVE) /LPF Med Orders - Current: Current Medications Amlodipine Besylate (Norvasc) 5 mg PO DAILY [facility] Aspirin (Halfprin) 81 mg PO DAILY [facility] Last Admin: 12/31/19 08:09 Dose: 81 mg Atorvastatin Calcium (Lipitor) 10 mg PO BEDTIME [facility] Hydralazine HCl (Apresoline) 10 mg IVPUSH Q6HR PRN PRN Reason: Hypertension Metoprolol Succinate (Toprol Xl) 12.5 mg PO DAILY [facility] Last Admin: 12/31/19 08:08 Dose: 12.5 mg Multivitamins/Minerals (Thera M Plus) 1 tab PO DAILY [facility] Last Admin: 12/31/19 08:09 Dose: 1 tab Sodium Chloride (Saline Flush) 10 ml FLUSH ASDIRECTED PRN PRN Reason: Keep Vein Open Discontinued Medications Amlodipine Besylate (Norvasc) 5 mg PO NOW STA Stop: 12/30/19 22:36 Last Admin: 12/30/19 22:47 Dose: 5 mg Aspirin (Aspirin) 324 mg PO ONETIME STA Stop: 12/30/19 22:03 Last Admin: 12/30/19 22:09 Dose: 324 mg Clonidine HCl (Catapres) 0.1 mg PO ONETIME ONE Stop: 12/30/19 22:36 Last Admin: 12/30/19 22:47 Dose: 0.1 mg Lactated Ringer's (Ringers, Lactated) 1,000 mls @ 999 mls/hr IV ONETIME ONE Stop: 12/31/19 01:39 Last Admin: 12/31/19 00:25 Dose: 999 mls/hr Nitroglycerin (Nitrostat) 0.4 mg SL ONETIME ONE Stop: 12/30/19 23:46 Last Admin: 12/31/19 00:05 Dose: 0.4 mg Ondansetron HCl (Zofran) 4 mg IV ONETIME ONE Stop: 12/31/19 00:18 Last Admin: 12/31/19 01:16 Dose: 4 mg - Exam General: Reports: Alert, Oriented HEENT: Reports: Pupils Equal, Pupils Reactive Neck: Reports: Supple Lungs: Reports: Clear to Auscultation, Normal Respiratory Effort Cardiovascular: Reports: Regular Rate, Regular Rhythm GI/Abdominal Exam: Normal Bowel Sounds, Soft, Non-Tender Back Exam: Reports: Normal Inspection Extremities: Normal Inspection, Normal Range of Motion, No Pedal Edema, Normal Capillary Refill Skin: Reports: Warm, Dry, Intact Neurological: Reports: No New Focal Deficit Psy/Mental Status: Reports: Alert, Normal Affect, Normal Mood
[2019-12-31] MEDS ORDERED: atorvaSTATin 10 MG Tab PO SCH (20:00)
[2020-01-01] MEDS ORDERED: amLODIPine 5 MG Tab PO SCH (08:00)
== END 2019-12-31 20:00 | disposition home or self-care (01) ==
LOC: VM.ED 21:08 → VM.MS 12-31 01:18
PROVIDERS: ADMIT Nurse Practitioner Family; ATTEND Nurse Practitioner Family
DX: I16.0 Hypertensive urgency (principal); I10 Essential (primary) hypertension; I25.119 Atherosclerotic heart disease of native coronary artery with unspecified angina pectoris; E78.5 Hyperlipidemia, unspecified; Z95.5 Presence of coronary angioplasty implant and graft; Z79.899 Other long term (current) drug therapy; Z79.82 Long term (current) use of aspirin
CPT/HCPCS: 36415; 71046; 80053; 80061; 81001; 83880; 84484; 85025; 85610; 85730; 93005; 93010; 96361; 96374; 99217; 99220; 99285-25; A9270-GY; G0378; J2405; J7120

== ENCOUNTER 2021-01-28 08:47 | Observation (INO) | payer MEDICARE, OTHER ==
[2021-01-28] MEDS ORDERED: Sodium Chloride 0.9% 10 ML Syringe FLUSH PRN (09:09)
--- NOTE | 2021-01-28 09:33 | EDM.PDOC ---
ED HPI GENERAL MEDICAL PROBLEM - General Chief Complaint: Cardiovascular Problem Stated Complaint: CHEST PAINS Time Seen by Provider: 01/28/21 08:50 Source of Information: Reports: Patient History Limitations: Reports: No Limitations - History of Present Illness INITIAL COMMENTS - FREE TEXT/NARRATIVE: Pt. presents to ER with complaints of chest burning, lightheadedness, nausea, and L arm tightness. Pt. noticed the symptoms first at 0400 this AM (pt. states that she was awake at the time). Pt. states that the symptoms resolved and she went back to bed. Pt. states that the symptoms started again shortly before coming to the ER. Pt. states that she has not recently been ill. She has not been diaphoretic. By the time she arrived to the ER, she reported that the symptoms had resolved. Pt. has a history of CAD and has had an inferior NM approx. 6 years ago. She received a drug eluting stent to mid circumflex at that time. She also had 50% stenosis in proximal LAD. Since then, she has been seen in ER several times for chest pain and hypertension, sometimes with ER visit only, as well as with observation admission and troponin trending and at least one transfer to [place] with unstable angina. She had a lexiscan last February which showed a small area of apical ischemia. Pt. states that Dr. La, her PCP, ordered an echocardiogram recently for shortness of breath/EKG changes. Pt. states that she did take 4 baby aspirin prior to coming to the ER. Onset: Today Onset Date: 01/28/21 Onset Time: 04:00 Location: Reports: Chest, Upper Extremity, Left Quality: Reports: Burning Associated Symptoms: Reports: Nausea/Vomiting, Other (lightheadedness). 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 - Related Data Allergies Allergy/AdvReac Type Severity Reaction Status Date / Time No Known Drug Allergies Allergy Other Verified 01/28/21 09:02 Home Meds: Home Meds Aspirin [Ecotrin] 81 mg PO DAILY 09/26/14 [History] Multivitamin [Multi Vitamin Daily] 1 each PO DAILY 09/26/14 [History] Metoprolol Succinate [Toprol XL] 12.5 mg PO DAILY 11/30/15 [History] Nitroglycerin [Nitrostat] 0.4 mg SL Q5M PRN 11/30/15 [History] Acetaminophen/Diphenhydramine [Tylenol Pm Ex-Strength Caplet] 2 tab PO BEDTIME PRN 12/31/19 [History] Melatonin 3 mg PO BEDTIME PRN 12/31/19 [History] diphenhydrAMINE [Benadryl] 25 - 50 mg PO ASDIRECTED PRN 12/31/19 [History] Rosuvastatin [Crestor] 10 mg PO DAILY 01/28/21 [History] amLODIPine [Norvasc] 10 mg PO DAILY 01/28/21 [History] Past Medical History - Past Health History Medical/Surgical History: Denies Medical/Surgical History Cardiovascular History: Reports: CAD, Hypertension, Stents Other Cardiovascular History: Hypertensive urgency Genitourinary History: Reports: Other (See Below) Other Genitourinary History: Postmenopausal atrophic vaginitis Musculoskeletal History: Reports: Other (See Below) Other Musculoskeletal History: Osteopenia Psychiatric History: Reports: Anxiety Endocrine/Metabolic History: Reports: Osteopenia Immunologic History: Reports: Other (See Below) Other Immunologic History: Allergic Reaction Oncologic (Cancer) History: Reports: Breast, Other (See Below) Other Oncologic History: Lumpectomy Dermatologic History: Reports: Other (See Below) Other Dermatologic History: Lichen - Past Surgical History Cardiovascular Surgical History: Reports: Coronary Artery Stent Social & Family History - Tobacco Use Tobacco Use Status *Q: Never Tobacco User ED ROS GENERAL - Review of Systems Review Of Systems: See Below Constitutional: Reports: No Symptoms HEENT: Reports: No Symptoms Respiratory: Reports: No Symptoms Cardiovascular: Reports: Chest Pain, Dyspnea on Exertion (Has been experiencing this at home, according to clinic chart.), Lightheadedness, Other (arm pain). Denies: Palpitations, Syncope Endocrine: Reports: No Symptoms GI/Abdominal: Reports: Nausea : Reports: No Symptoms Musculoskeletal: Reports: No Symptoms Skin: Reports: No Symptoms Neurological: Reports: No Symptoms Psychiatric: Reports: No Symptoms Hematologic/Lymphatic: Reports: No Symptoms Immunologic: Reports: No Symptoms ED EXAM, GENERAL - Physical Exam Exam: See Below Exam Limited By: No Limitations General Appearance: Alert, WD/WN, No Apparent Distress Throat/Mouth: Normal Lips, Normal Teeth, Normal Oropharynx, No Airway Compromise Head: Atraumatic, Normocephalic Neck: Normal Inspection, Supple, Non-Tender Respiratory/Chest: No Respiratory Distress, Lungs Clear, No Accessory Muscle Use, Chest Non-Tender Cardiovascular: Normal Peripheral Pulses, Regular Rate, Rhythm, No Edema, No JVD Peripheral Pulses: 4+: Radial (L) GI/Abdominal: Soft, Non-Tender, No Distention, No Mass (Female) Exam: Deferred Rectal (Female) Exam: Deferred Back Exam: Normal Inspection, Full Range of Motion Extremities: Normal Inspection, Normal Range of Motion, Non-Tender, No Pedal Ed yasmany, Normal Capillary Refill Neurological: Alert, Oriented, CN II-XII Intact, Normal Cognition, Normal Reflexes, No Motor/Sensory Deficits Psychiatric: Normal Affect, Normal Mood Skin Exam: Warm, Dry, Intact, Normal Color, No Rash Lymphatic: No Adenopathy #1 Interpretation Rhythm: NSR Alden: Normal P-Wave: Present QRS: Normal ST-T: Normal QT: Normal Comparison: No Change EKG Interpretation Comments: Q wave in inferior leads Course - Vital Signs Last Recorded V/S: Last Vital Signs Temp 36.9 C 01/28/21 11:10 Pulse 67 01/28/21 11:10 Resp 15 01/28/21 11:10 BP 132/79 01/28/21 11:10 Pulse Ox 97 01/28/21 11:10 - Orders/Labs/Meds Orders: Active Orders 24 hr Category Date Time Status EKG Documentation Completion [RC] STAT Care 01/28/21 09:09 Active Sodium Chloride 0.9% [Saline Flush] Med 01/28/21 09:09 Active 10 ml FLUSH ASDIRECTED PRN Peripheral IV Insertion Adult [OM.PC] Routine Oth 01/28/21 09:10 Ordered Medication Orders Sodium Chloride (Sodium Chloride 0.9% 10 Ml Syringe) 10 ml FLUSH ASDIRECTED PRN PRN Reason: Keep Vein Open Labs: Laboratory Tests 01/28/21 01/28/21 01/28/21 Range/Units 09:20 09:20 09:20 WBC 5.6 (4.0-10.0) x10^3/uL RBC 3.89 L (4.00-5.50) x10^6/uL Hgb 12.4 (12.0-16.0) g/dL Hct 36.0 (33.0-47.0) % MCV 92.5 (78.0-93.0) fL MCH 31.9 (26.0-32.0) pg MCHC 34.4 (32.0-36.0) g/dL RDW Coeff of Radha 12.5 (10.0-15.0) % Plt Count 247 (130-400) x10^3/uL Neut % (Auto) 32.5 L (50.0-80.0) % Lymph % (Auto) 56.8 H (25.0-50.0) % Crisp % (Auto) 8.9 (2.0-11.0) % Eos % (Auto) 1.4 (0.0-4.0) % Baso % (Auto) 0.4 (0.2-1.2) % PT 10.0 (9.9-12.5) SEC INR 0.9 L (2.0-3.5) APTT (25.6-32.8) SEC D-Dimer, Quantitative (<=0.58) mg/LFEU Sodium 141 (136-145) mmol/L Potassium 3.8 (3.5-5.1) mmol/L Chloride 103 (98-107) mmol/L Carbon Dioxide 26 (21-32) mmol/L Anion Gap 15.8 H (5-15) mmol/L BUN 13 (7-18) mg/dL Creatinine 0.8 (0.55-1.02) mg/dL Est Cr Clr Drug Dosing TNP Estimated GFR (MDRD) > 60 Glucose 100 H (70-99) mg/dL Calcium 9.1 (8.5-10.1) mg/dL Corrected Calcium 9.18 (8.5-10.1) mg/dL Magnesium 2.2 (1.8-2.4) mg/dL Total Bilirubin 0.3 (0.2-1.0) mg/dL AST 23 (15-37) U/L ALT 21 (14-59) U/L Alkaline Phosphatase 73 (46-116) U/L Troponin I High Sens 5 (<=51) ng/L NT-Pro-B Natriuret Pep 234 (<=450) pg/mL Total Protein 7.7 (6.4-8.2) g/dL Albumin 3.9 (3.4-5.0) g/dL Globulin 3.8 Albumin/Globulin Ratio 1.03 01/28/21 01/28/21 Range/Units 09:20 09:20 WBC (4.0-10.0) x10^3/uL RBC (4.00-5.50) x10^6/uL Hgb (12.0-16.0) g/dL Hct (33.0-47.0) % MCV (78.0-93.0) fL MCH (26.0-32.0) pg MCHC (32.0-36.0) g/dL RDW Coeff of Radha (10.0-15.0) % Plt Count (130-400) x10^3/uL Neut % (Auto) (50.0-80.0) % Lymph % (Auto) (25.0-50.0) % Crisp % (Auto) (2.0-11.0) % Eos % (Auto) (0.0-4.0) % Baso % (Auto) (0.2-1.2) % PT (9.9-12.5) SEC INR (2.0-3.5) APTT 23.6 L (25.6-32.8) SEC D-Dimer, Quantitative 0.63 H (<=0.58) mg/LFEU Sodium (136-145) mmol/L Potassium (3.5-5.1) mmol/L Chloride (98-107) mmol/L Carbon Dioxide (21-32) mmol/L Anion Gap (5-15) mmol/L BUN (7-18) mg/dL Creatinine (0.55-1.02) mg/dL Est Cr Clr Drug Dosing Estimated GFR (MDRD) Glucose (70-99) mg/dL Calcium (8.5-10.1) mg/dL Corrected Calcium (8.5-10.1) mg/dL Magnesium (1.8-2.4) mg/dL Total Bilirubin (0.2-1.0) mg/dL AST (15-37) U/L ALT (14-59) U/L Alkaline Phosphatase (46-116) U/L Troponin I High Sens (<=51) ng/L NT-Pro-B Natriuret Pep (<=450) pg/mL Total Protein (6.4-8.2) g/dL Albumin (3.4-5.0) g/dL Globulin Albumin/Globulin Ratio Meds: Medications Generic Name Dose Route Start Last Admin Trade Name Tuan PRN Reason Stop Dose Admin Sodium Chloride 10 ml 01/28/21 09:09 Sodium Chloride 0.9% 10 Ml Syringe FLUSH ASDIRECTED PRN Keep Vein Open Discontinued Medications Generic Name Dose Route Start Last Admin Trade Name Tuan PRN Reason Stop Dose Admin Iopamidol 100 ml 01/28/21 10:46 01/28/21 10:48 Iopamidol 612 Mg/Ml 100 Ml Bottle IVPUSH 01/28/21 10:47 100 ml ONETIME ONE Administration - Radiology Interpretation Free Text/Narrative:: chest x-ray did not reveal any acute pathology Departure - Departure Time of Disposition: 11:37 Disposition: Refer to Observation Clinical Impression: Chest pain - Discharge Information Sepsis Event Note (ED) - Evaluation Sepsis Screening Result: No Definite Risk - Focused Exam Vital Signs: Vital Signs Temp Pulse Resp BP Pulse Ox 01/28/21 11:10 36.9 C 67 15 132/79 97 01/28/21 10:00 64 15 135/70 97 01/28/21 08:47 36.7 C 84 16 158/88 H 99 - Problem List Review Problem List Initiated/Reviewed/Updated: Yes - My Orders Last 24 Hours: My Active Orders 01/28/21 09:09 EKG Documentation Completion [RC] STAT Sodium Chloride 0.9% [Saline Flush] 10 ml FLUSH ASDIRECTED PRN 01/28/21 09:10 Peripheral IV Insertion Adult [OM.PC] Routine - Assessment/Plan Last 24 Hours: My Active Orders 01/28/21 09:09 EKG Documentation Completion [RC] STAT Sodium Chloride 0.9% [Saline Flush] 10 ml FLUSH ASDIRECTED PRN 01/28/21 09:10 Peripheral IV Insertion Adult [OM.PC] Routine Plan: Pt. was observed. Initial EKG was unchanged. Troponin was negative. Pt. did have a + d dimer. CT angiogram of chest was obtained, negative for PE. Chest x-ray and CTA were negative for other intrathoracic pathology as well. Pt. was advised to hit her call light if she had discomfort so we can repeat her EKG. She states that she has had some mild intermittent burning in her chest since admission to ER but has yet to notify her nurse. Pt. was advised to please do this once she was admitted. Pt. will be admitted observation. She indicates that she does not wish to be intubated, and does not want CPR.
[2021-01-28 09:56] LABS: ANION GAP 15.8 mmol/L (5-15); CHLORIDE,CL 103 mmol/L (98-107); SODIUM,NA 141 mmol/L (136-145)
--- NOTE | 2021-01-28 10:06 | CR ---
[id number] RAD/RAD Chest PA or AP 1V EXAM: RAD Chest PA or AP 1V INDICATION: CHEST BURNING. COMPARISON: None. DISCUSSION: Cardiomediastinal silhouette is normal in size and contour. No infiltrate, effusion, pneumothorax, or edema. Low lung volumes. IMPRESSION: No acute cardiopulmonary abnormality. Syed De Luna DO 01/28/21 1005 Thank you for allowing us to participate in the care of your patient.
[2021-01-28] MEDS ORDERED: Iopamidol 612 MG/ML 100 ML Bottle IVPUSH ONE (10:46)
--- NOTE | 2021-01-28 11:05 | CT ---
[id number] CT/CTA Chest Exam: CTA Chest Clinical Data: CHEST PAIN POSITIVE D-DIMER COMPARISON: CORRELATION IS MADE WITH NOVEMBER 03, 2015 FINDINGS: There are no pulmonary emboli The great vessels are intact There are diffuse atheromatous calcifications There is no pulmonary parenchymal infiltrate or effusion There are no lung masses or nodules There are bilateral apical cicatricial changes IMPRESSION: NO PULMONARY EMBOLI Bertram Alston MD 01/28/21 [id number] Thank you for allowing us to participate in the care of your patient.
[2021-01-28] MEDS ORDERED: Acetaminophen/Diphenhydramine 500-25 MG Tab PO PRN (20:00)
[2021-01-29] MEDS ORDERED: Aspirin 81 MG Tab.EC PO SCH (08:00)
[2021-01-29] MEDS ORDERED: amLODIPine 5 MG Tab PO SCH (08:00)
[2021-01-29] MEDS ORDERED: Metoprolol Succinate 25 MG Tab.ER PO SCH (08:00)
[2021-01-29] MEDS ORDERED: atorvaSTATin 40 MG Tab PO SCH (08:00)
[2021-01-29 10:16] VITALS: BP 144/71; PULSE 66
--- NOTE | 2021-01-29 14:33 | DISCH ---
PRIMARY DISCHARGE DIAGNOSES: 1. Chest discomfort and left arm discomfort, likely angina with known history of coronary disease and inferior myocardial infarction and stenting to the mid circumflex several years ago. Also has 50% left anterior descending stenosis. 2. Arthralgias and hip pain. The patient has started walking on her treadmill again and has done fine. She has had no chest pain with that. 3. Essential hypertension. Blood pressure was elevated on arrival to 158/88, improved by discharge. 4. Lightheadedness, resolved. The patient had no events on telemetry. 5. History of breast cancer. 6. Shortness of breath. She is planned for an outpatient echo. She did have a Lexiscan in 02/2020 that showed a small area of apical ischemia. She has a normal EF. REASON FOR ADMISSION: On the date of admission, this 75-year-old female with known heart disease, had recently been in the clinic last week discussing more so shortness of breath and arthralgias, woke up after not sleeping very well during the night at about 4 a.m., was nauseated, lightheaded, and had some left arm tightness but then went back to bed. However, her symptoms continued and her brought her into the emergency room. She actually felt like something was sitting on her chest even on the way here, but by the time she got here, her symptoms resolved. She has passed out once in the past when she got nitroglycerin, so she did not get any nitroglycerin here, but she had already chewed 4 baby aspirins and normally does take aspirin. She had a CTA, which did not show any blood clot. Chest x-ray did not show any pneumonia. She has not been coughing. She actually did not feel like her breathing was that bad. The patient was admitted for observation for serial troponins, which in fact all remained negative. She had another episode yesterday afternoon, but by the time the EKG was hooked up, her symptoms had resolved. Otherwise overnight and this morning, she has had no further episodes and is feeling well with a plan to discharge home for followup in the clinic for an echo. No medication changes were made during her hospital stay. She normally takes her Toprol at night. Discussion was had with the patient to increase her Toprol to 25 mg daily instead of the 12.5 that she currently takes. PHYSICAL EXAMINATION: Vital Signs: Discharging vitals included temperature 97.5, pulse 66, blood pressure 144/71, respiratory rate 16, and O2 of 100 on room air. General: She is in no acute distress. Heart: Regular rate and rhythm. S1, S2 without murmur. Lungs: Lung sounds are clear to auscultation bilaterally without crackles or wheezes. Abdomen: Positive bowel sounds. Nontender. Extremities: Warm and dry. No edema. Mental Status: Alert and orientated x3. DISCHARGE PLANS AND INSTRUCTIONS: The patient will follow up in the clinic for her echo test tomorrow as previously planned. She will follow up with Dr. La sooner. Otherwise, I will make arrangements for her to see Cardiology depending on what further testing she needs. Advised that if the chest discomfort and arm discomfort return, she should seek medical care and to avoid any strenuous activity until after we have her evaluated. She will continue her aspirin. She will continue her Toprol. She will continue her statin. MKA: 01/29/2021 13:39:42 MODL: 01/29/2021 14:11:10 /[id number] MTDD
== END 2021-01-29 10:15 | disposition home or self-care (01) ==
LOC: VM.ED 08:47 → VM.MS 11:17
PROVIDERS: ADMIT Physician Assistant; ATTEND Physician Assistant
DX: R07.89 Other chest pain (principal); R42 Dizziness and giddiness; R06.02 Shortness of breath; I10 Essential (primary) hypertension; I25.10 Atherosclerotic heart disease of native coronary artery without angina pectoris; I25.2 Old myocardial infarction; R79.1 Abnormal coagulation profile; M25.559 Pain in unspecified hip; Z20.822 Contact with and (suspected) exposure to COVID-19; Z79.82 Long term (current) use of aspirin; Z85.3 Personal history of malignant neoplasm of breast; Z95.818 Presence of other cardiac implants and grafts; Z98.890 Other specified postprocedural states
CPT/HCPCS: 36415; 71045; 71275; 80053; 83735; 83880; 84484; 85025; 85379; 85610; 85730; 93005; 93010; 99220; 99285-25; A9270-GY; G0378; Q9967; U0002

== ENCOUNTER 2021-05-11 22:55 | Observation (INO) | payer MEDICARE, OTHER ==
[2021-05-11] MEDS ORDERED: Sodium Chloride 0.9% 10 ML Syringe FLUSH PRN (23:11)
[2021-05-11] MEDS ORDERED: Aspirin 81 MG Tab.Chew PO ONE (23:13)
--- NOTE | 2021-05-11 23:18 | EDM.PDOC ---
ED HPI GENERAL MEDICAL PROBLEM - General Stated Complaint: CHEST PAIN Time Seen by Provider: 05/11/21 23:05 Source of Information: Reports: Patient History Limitations: Reports: No Limitations - History of Present Illness INITIAL COMMENTS - FREE TEXT/NARRATIVE: Patient comes emergency department today from home with complaints of chest pain. This patient is status post angioplasty and stenting in January 2021. She has a history of hypertension coronary artery disease stable angina NSTEMI hyperlipidemia she does not smoke. She does take an aspirin and Plavix daily. Tonight at approximately 2029 she developed midsternal chest heaviness very similar to her cardiac pain in the past while she was sitting watching TV. She had exercised on the treadmill about 1 hour prior for about 1/2 mile and was asymptomatic at that time. These current symptoms developed about an hour later while laying in bed. Although she had somewhat different presentation she also had some discomfort in her neck her left posterior shoulder blade as well as down her left arm. She initially had taken 3 nitroglycerin as previously instructed from cardiology with resolution of the midsternal chest pain although the shoulder and arm and neck pain had continued. Although upon arrival to the emergency department the symptomology has resolved. She has no discomfort of her chest neck shoulder or arm. She has no shortness of breath. No diaphoresis. No weakness dizziness lightheadedness. No palpitations. No fever no chills. No nausea no vomiting. No abdominal pain. She has felt well the past couple of weeks with no similar episodes. Left Arm Pain Score (Numeric/FACES): 5 - Related Data Allergies Allergy/AdvReac Type Severity Reaction Status Date / Time No Known Drug Allergies Allergy Other Verified 05/11/21 23:26 Home Meds: Home Meds Aspirin [Ecotrin EC] 81 mg PO DAILY 09/26/14 [History] Acetaminophen/Diphenhydramine [Tylenol Pm Ex-Strength Caplet] 2 tab PO BEDTIME PRN 12/31/19 [History] Melatonin 3 mg PO BEDTIME PRN 12/31/19 [History] diphenhydrAMINE [Benadryl] 25 - 50 mg PO ASDIRECTED PRN 12/31/19 [History] Rosuvastatin [Crestor] 10 mg PO DAILY 01/28/21 [History] amLODIPine [Norvasc] 10 mg PO DAILY 01/28/21 [History] Metoprolol Succinate [Toprol XL] 25 mg PO DAILY #30 tab.er 01/29/21 [Rx] Clopidogrel [Plavix] 75 mg PO DAILY 05/11/21 [History] Famotidine 20 mg PO BEDTIME 05/11/21 [History] Isosorbide Mononitrate [Imdur] 90 mg PO DAILY 05/11/21 [History] Nitroglycerin [Nitrostat] 0.4 mg SL ASDIRECTED PRN 05/11/21 [History] Past Medical History - Past Health History Medical/Surgical History: Denies Medical/Surgical History HEENT History: Reports: None Cardiovascular History: Reports: Angina, CAD, High Cholesterol, Hypertension, Stents Other Cardiovascular History: Hypertensive urgency Respiratory History: Reports: None Gastrointestinal History: Reports: None Genitourinary History: Reports: Other (See Below) Other Genitourinary History: Postmenopausal atrophic vaginitis Musculoskeletal History: Reports: Other (See Below) Other Musculoskeletal History: Osteopenia Neurological History: Reports: None Psychiatric History: Reports: Anxiety Endocrine/Metabolic History: Reports: Osteopenia Hematologic History: Reports: None Immunologic History: Reports: Other (See Below) Other Immunologic History: Allergic Reaction Oncologic (Cancer) History: Reports: Breast Other Oncologic History: Lumpectomy Dermatologic History: Reports: Other (See Below) Other Dermatologic History: Lichen - Past Surgical History HEENT Surgical History: Reports: None Cardiovascular Surgical History: Reports: Coronary Artery Stent Respiratory Surgical History: Reports: None GI Surgical History: Reports: Appendectomy, Colonoscopy Female Surgical History: Reports: Breast Biopsy, Other (See Below) Other Female Surgeries/Procedures: Breast lumpectomy Neurological Surgical History: Reports: None Oncologic Surgical History: Reports: Biopsy of Breast, Lumpectomy ED ROS GENERAL - Review of Systems Review Of Systems: Comprehensive ROS is negative, except as noted in HPI. ED EXAM, GENERAL - Physical Exam Exam: See Below Exam Limited By: No Limitations General Appearance: Alert, WD/WN, No Apparent Distress Eye Exam: Bilateral Eye: EOMI Ears: Normal External Exam Nose: Normal Inspection Throat/Mouth: Normal Inspection Head: Atraumatic, Normocephalic Neck: Normal Inspection, Supple, Non-Tender Respiratory/Chest: No Respiratory Distress, Lungs Clear, Normal Breath Sounds, No Accessory Muscle Use, Chest Non-Tender Cardiovascular: Normal Peripheral Pulses, Regular Rate, Rhythm Peripheral Pulses: 2+: Radial (L), Radial (R), Posterior Tibial (L), Posterior Tibial (R), Dorsalis Pedis (L), Dorsalis Pedis (R) GI/Abdominal: Normal Bowel Sounds, Soft, Non-Tender (Female) Exam: Deferred Rectal (Female) Exam: Deferred Back Exam: Normal Inspection, Full Range of Motion Extremities: Normal Inspection, Normal Range of Motion, Non-Tender, No Pedal Edema, Normal Capillary Refill Neurological: Alert, Oriented, Normal Cognition, Normal Gait, No Motor/Sensory Deficits Psychiatric: Normal Affect, Normal Mood Skin Exam: Warm, Dry, Intact, Normal Color, No Rash Lymphatic: No Adenopathy Course - Vital Signs Last Recorded V/S: Last Vital Signs Temp 98.3 F 05/11/21 23:00 Pulse 60 05/11/21 23:35 Resp 16 05/11/21 23:35 BP 121/72 05/11/21 23:35 Pulse Ox 99 05/11/21 23:35 - Orders/Labs/Meds Orders: Active Orders 24 hr Category Date Time Status Admission Status [Patient Status] [ADT] Routine ADT 05/12/21 00:26 Active EKG 12 Lead [EKG Documentation Completion] [RC] STAT Care 05/11/21 23:12 Active Chest 2V [CR] Urgent Exams 05/11/21 23:11 Ordered Sodium Chloride 0.9% [Saline Flush] Med 05/11/21 23:11 Active 10 ml FLUSH ASDIRECTED PRN Peripheral IV Insertion Adult [OM.PC] Stat Oth 05/11/21 23:11 Ordered Medication Orders Sodium Chloride (Sodium Chloride 0.9% 10 Ml Syringe) 10 ml FLUSH ASDIRECTED PRN PRN Reason: Keep Vein Open Labs: Laboratory Tests 05/11/21 05/11/21 05/11/21 Range/Units 23:10 23:10 23:10 WBC 6.6 (4.0-10.0) x10^3/uL RBC 3.74 L (4.00-5.50) x10^6/uL Hgb 11.9 L (12.0-16.0) g/dL Hct 34.7 (33.0-47.0) % MCV 92.8 (78.0-93.0) fL MCH 31.8 (26.0-32.0) pg MCHC 34.3 (32.0-36.0) g/dL RDW Coeff of Radha 13.4 (10.0-15.0) % Plt Count 215 (130-400) x10^3/uL Neut % (Auto) 33.1 L (50.0-80.0) % Lymph % (Auto) 51.7 H (25.0-50.0) % Newberry % (Auto) 11.3 H (2.0-11.0) % Eos % (Auto) 3.4 (0.0-4.0) % Baso % (Auto) 0.5 (0.2-1.2) % PT 9.6 L (9.9-12.5) SEC INR 0.9 L (2.0-3.5) APTT 22.7 L (25.6-32.8) SEC Sodium 140 (136-145) mmol/L Potassium 3.7 (3.5-5.1) mmol/L Chloride 106 (98-107) mmol/L Carbon Dioxide 26 (21-32) mmol/L Anion Gap 11.7 (5-15) mmol/L BUN 17 (7-18) mg/dL Creatinine 0.9 (0.55-1.02) mg/dL Est Cr Clr Drug Dosing TNP Estimated GFR (MDRD) > 60 Glucose 96 (70-99) mg/dL Calcium 8.7 (8.5-10.1) mg/dL Corrected Calcium 8.7 (8.5-10.1) mg/dL Total Bilirubin 0.3 (0.2-1.0) mg/dL AST 22 (15-37) U/L ALT 13 L (14-59) U/L Alkaline Phosphatase 75 (46-116) U/L Troponin I High Sens 36 (<=51) ng/L C-Reactive Protein < 0.2 (<=0.9) mg/dL NT-Pro-B Natriuret Pep 420 (<=450) pg/mL Total Protein 7.5 (6.4-8.2) g/dL Albumin 4.0 (3.4-5.0) g/dL Globulin 3.5 Albumin/Globulin Ratio 1.14 SARS CoV-2 RNA Rapid AKILAH (NEGATIVE) 05/12/21 Range/Units 00:05 WBC (4.0-10.0) x10^3/uL RBC (4.00-5.50) x10^6/uL Hgb (12.0-16.0) g/dL Hct (33.0-47.0) % MCV (78.0-93.0) fL MCH (26.0-32.0) pg MCHC (32.0-36.0) g/dL RDW Coeff of Radha (10.0-15.0) % Plt Count (130-400) x10^3/uL Neut % (Auto) (50.0-80.0) % Lymph % (Auto) (25.0-50.0) % Newberry % (Auto) (2.0-11.0) % Eos % (Auto) (0.0-4.0) % Baso % (Auto) (0.2-1.2) % PT (9.9-12.5) SEC INR (2.0-3.5) APTT (25.6-32.8) SEC Sodium (136-145) mmol/L Potassium (3.5-5.1) mmol/L Chloride (98-107) mmol/L Carbon Dioxide (21-32) mmol/L Anion Gap (5-15) mmol/L BUN (7-18) mg/dL Creatinine (0.55-1.02) mg/dL Est Cr Clr Drug Dosing Estimated GFR (MDRD) Glucose (70-99) mg/dL Calcium (8.5-10.1) mg/dL Corrected Calcium (8.5-10.1) mg/dL Total Bilirubin (0.2-1.0) mg/dL AST (15-37) U/L ALT (14-59) U/L Alkaline Phosphatase (46-116) U/L Troponin I High Sens (<=51) ng/L C-Reactive Protein (<=0.9) mg/dL NT-Pro-B Natriuret Pep (<=450) pg/mL Total Protein (6.4-8.2) g/dL Albumin (3.4-5.0) g/dL Globulin Albumin/Globulin Ratio SARS CoV-2 RNA Rapid AKILAH Negative (NEGATIVE) Meds: Medications Generic Name Dose Route Start Last Admin Trade Name Freq PRN Reason Stop Dose Admin Sodium Chloride 10 ml 07/28/21 23:11 Sodium Chloride 0.9% 10 Ml Syringe FLUSH ASDIRECTED PRN Keep Vein Open Discontinued Medications Generic Name Dose Route Start Last Admin Trade Name Tuan PRN Reason Stop Dose Admin Aspirin 243 mg 05/11/21 23:13 05/11/21 23:23 Aspirin 81 Mg Tab.Chew PO 05/11/21 23:14 243 mg ONETIME ONE Administration - Re-Assessments/Exams Free Text/Narrative Re-Assessment/Exam: 05/11/21 23:23 Initial EKG without any ST elevation or depression when reviewed extempora neously by myself. She was given 3 81 mg aspirin for a total dose of 324 this evening. She has no chest arm shoulder neck discomfort upon arrival. She is instructed to let us know if any of this returns. Labs drawn. 05/11/21 23:27 Reviewing her discharge summary on 04/20/2021 She had restenosis 95% of the distal apical LAD treated with balloon angioplasty She had remaining 40-45% Prox LAD and 90% small non dominant RCA recommend medical RX. Cardiology recommends increasing Imdur to 120 daily if continued chest pains. 05/12/21 00:36 Her chest x-ray per radiology report shows no acute findings. She rested comfortably while in the emergency department with no recurrence of the chest pain left scapula pain or left arm pain or neck pain. Her laboratory evaluation is rather unremarkable. Her troponin high-sensitivity is negative. Although with her recent cardiac stenting in the presentation of unstable angina I do have concerns of just discharging this patient home. She does have a known RCA lesion that is being treated medically at this time. I called and spoke with Dr. Wilfredo Tate at [facility] in [place]. HPI ER Course findings and concerns were relayed to her. I discussed my plan to admit obs as her troponin is normal and her symptoms have resolved and trend troponins during the night and increase her Imdur in the morning. Dr. Tate agreed and only advice was possibly heparin to start if troponin elevates or CP returns. Dr. Tate agrees with the plan and offered their services openly if anything changes during the night. I discussed the negative work up with the patient although I have concerns with the unstable angina. We will place into observation trend her troponins. She is aware to notify us if she has any reoccurrence of CP like symptoms. She is comfortable with this plan and her questions answered. Departure - Departure Time of Disposition: 00:20 Disposition: Refer to Observation Clinical Impression: Unstable angina Referrals: Janeen La DO [Primary Care Provider] - Sepsis Event Note (ED) - Focused Exam Vital Signs: Vital Signs Temp Pulse Resp BP Pulse Ox 05/11/21 23:35 60 16 121/72 99 05/11/21 23:00 98.3 F 70 16 151/83 H 98 - Problem List & Annotations (1) Essential hypertension SNOMED Code(s): 54866008 Code(s): I10 - ESSENTIAL (PRIMARY) HYPERTENSION Status: Acute Current Visit: Yes Annotation/Comment:: Blood pressure is a little bit high in the emergency department with a systolic of 151/53 giving us some room to play with her isosorbide mononitrate. We will continue her Norvasc from home. (2) Hyperlipidemia SNOMED Code(s): 58484192 Code(s): E78.5 - HYPERLIPIDEMIA, UNSPECIFIED Status: Acute Current Visit: Yes Annotation/Comment:: We will continue her Crestor 20 mg daily. Most recent cholesterol panel from 02-02-21 total cholesterol 132, triglycerides 63 HDL 52 LDL 67 (3) Unstable angina SNOMED Code(s): 7119426, 324589327 Code(s): I20.0 - UNSTABLE ANGINA Status: Acute Current Visit: Yes Annotation/Comment:: We will trend her troponins throughout the night. Repeat EKG in the morning. If she does develop any chest pain or elevation of her troponin during the night we will heparinize her. Continue her Plavix as well as her aspirin daily. We will also increase her Imdur to 120 mg daily starting in the morning. - Problem List Review Problem List Initiated/Reviewed/Updated: Yes - My Orders Last 24 Hours: My Active Orders 05/11/21 23:11 Chest 2V [CR] Urgent Sodium Chloride 0.9% [Saline Flush] 10 ml FLUSH ASDIRECTED PRN Peripheral IV Insertion Adult [OM.PC] Stat 05/11/21 23:12 EKG 12 Lead [EKG Documentation Completion] [RC] STAT 05/12/21 00:26 Admission Status [Patient Status] [ADT] Routine - Assessment/Plan Admission H&P: Please use this note as an admission H&P Last 24 Hours: My Active Orders 05/11/21 23:11 Chest 2V [CR] Urgent Sodium Chloride 0.9% [Saline Flush] 10 ml FLUSH ASDIRECTED PRN Peripheral IV Insertion Adult [OM.PC] Stat 05/11/21 23:12 EKG 12 Lead [EKG Documentation Completion] [RC] STAT 05/12/21 00:26 Admission Status [Patient Status] [ADT] Routine Assessment:: A/P As above. We will admit under observation tonight and trend her troponins. Repeat EKG in the morning. All goes well during the night anticipate discharge in the morning. Will discuss case with Dr. Romero La in the morning her PCP about assuming care of this patient. Continue home meds. Increase her Imdur to 120mg daily. Sepsis: No concerns at this time monitor. Daily labs. VTE: Short stay not indicated at this time will place TEDs. Code Status: Full Code. Covid negative for screening purposes in the ED. Please use this note as the admission H&P.
--- NOTE | 2021-05-11 23:25 | PCM.EKG ---
#1 Interpretation EKG Date: 05/11/21 Time: 23:25 Rhythm: NSR Rate (Beats/Min): 74 [place]: Normal P-Wave: Present QRS: Normal ST-T: Normal QT: Normal Comparison: No Change
[2021-05-11 23:50] LABS: PTT,PARTIAL THROMBOPLSTIN TIME 22.7 SEC (25.6-32.8)
[2021-05-11 23:52] LABS: CHLORIDE,CL 106 mmol/L (98-107); SODIUM,NA 140 mmol/L (136-145)
[2021-05-11 23:53] LABS: ANION GAP 11.7 mmol/L (5-15)
[2021-05-12] MEDS ORDERED: Nitroglycerin 0.4 MG Tab.SL SL PRN (00:56)
[2021-05-12] MEDS ORDERED: Melatonin 3 MG Tab PO PRN (00:57)
[2021-05-12 07:11] LABS: CHLORIDE,CL 107 mmol/L (98-107); SODIUM,NA 141 mmol/L (136-145)
[2021-05-12 07:12] LABS: ANION GAP 10.6 mmol/L (5-15)
[2021-05-12] MEDS: Isosorbide Mononitrate 60 MG Tab.ER PO SCH (08:09)
[2021-05-12] MEDS: atorvaSTATin 40 MG Tab PO SCH (08:09)
[2021-05-12] MEDS: Aspirin 81 MG Tab.EC PO SCH (08:09)
[2021-05-12] MEDS: Clopidogrel 75 MG Tab PO SCH (08:09)
[2021-05-12] MEDS: Metoprolol Succinate 25 MG Tab.ER PO SCH (08:10)
--- NOTE | 2021-05-12 08:32 | CR ---
[id number] RAD/RAD Chest PA And Lateral EXAM: RAD Chest PA And Lateral INDICATION: CHEST PAIN, SHORTNESS OF BREATH COMPARISON: None. DISCUSSION: Cardiomediastinal silhouette is normal in size and contour. No infiltrate, effusion, pneumothorax, or edema. Pulmonary hyperinflation. Surgical clips within the left axilla. IMPRESSION: No acute cardiopulmonary abnormality. Syed De Luna DO 05/12/21 0831 Thank you for allowing us to participate in the care of your patient.
[2021-05-12] MEDS ORDERED: GI Cocktail Oral Solution 30 ML PO STA (12:38)
--- NOTE | 2021-05-12 12:52 | PCM.PN ---
- General Info Date of Service: 05/12/21 Admission Dx/Problem (Free Text): Unstable angina CAD SP stenting and [place] angio Subjective Update: Patient slept well throughout the night and did not have any development of chest pain or symptoms that she had that brought her into the emergency dep artment. She has been ambulatory around the department without any symptoms. About 8:00 this morning she did have some waxing and waning tightness on the right and left side of her chest that went up her mid sternum and into her neck. She had no pain in her left shoulder her left arm like last night. She had no shortness of breath or diaphoresis. The symptoms of the waxing and waning heaviness on her chest did not come when she was ambulating around the department. It came on while she was sitting in bed watching TV and discussing with people. She did receive a nitro at that time that did not do any change of her pain. She has no weakness dizziness lightheadedness. No nausea no vomi ting. No palpitations syncope. She feels better when she is ambulating around the department. She denies any heartburn. No abdominal pain. No hematuria dysuria or urinary frequency. Functional Status: Denies: Pain Controlled - Patient Data Vitals - Most Recent: Last Vital Signs Temp 98.3 F 05/12/21 11:20 Pulse 63 05/12/21 11:20 Resp 20 05/12/21 11:20 BP 117/63 05/12/21 11:20 Pulse Ox 93 L 05/12/21 11:20 Weight - Most Recent: 141 lb 8 oz I&O - Last 24 Hours: Intake & Output 05/11/21 05/12/21 05/12/21 22:59 06:59 14:59 Intake Total 100 240 Balance 100 240 Lab Results Last 24 Hours: Laboratory Results - last 24 hr 05/11/21 05/11/21 05/11/21 Range/Units 23:10 23:10 23:10 WBC 6.6 (4.0-10.0) x10^3/uL RBC 3.74 L (4.00-5.50) x10^6/uL Hgb 11.9 L (12.0-16.0) g/dL Hct 34.7 (33.0-47.0) % MCV 92.8 (78.0-93.0) fL MCH 31.8 (26.0-32.0) pg MCHC 34.3 (32.0-36.0) g/dL RDW Coeff of Radha 13.4 (10.0-15.0) % Plt Count 215 (130-400) x10^3/uL Neut % (Auto) 33.1 L (50.0-80.0) % Lymph % (Auto) 51.7 H (25.0-50.0) % [place] % (Auto) 11.3 H (2.0-11.0) % Eos % (Auto) 3.4 (0.0-4.0) % Baso % (Auto) 0.5 (0.2-1.2) % PT 9.6 L (9.9-12.5) SEC INR 0.9 L (2.0-3.5) APTT 22.7 L (25.6-32.8) SEC Sodium 140 (136-145) mmol/L Potassium 3.7 (3.5-5.1) mmol/L Chloride 106 (98-107) mmol/L Carbon Dioxide 26 (21-32) mmol/L Anion Gap 11.7 (5-15) mmol/L BUN 17 (7-18) mg/dL Creatinine 0.9 (0.55-1.02) mg/dL Est Cr Clr Drug Dosing TNP Estimated GFR (MDRD) > 60 Glucose 96 (70-99) mg/dL Calcium 8.7 (8.5-10.1) mg/dL Corrected Calcium 8.7 (8.5-10.1) mg/dL Total Bilirubin 0.3 (0.2-1.0) mg/dL AST 22 (15-37) U/L ALT 13 L (14-59) U/L Alkaline Phosphatase 75 (46-116) U/L Troponin I High Sens 36 (<=51) ng/L C-Reactive Protein < 0.2 (<=0.9) mg/dL NT-Pro-B Natriuret Pep 420 (<=450) pg/mL Total Protein 7.5 (6.4-8.2) g/dL Albumin 4.0 (3.4-5.0) g/dL Globulin 3.5 Albumin/Globulin Ratio 1.14 SARS CoV-2 RNA Rapid AKILAH (NEGATIVE) 05/12/21 05/12/21 05/12/21 Range/Units 00:05 02:00 06:10 WBC (4.0-10.0) x10^3/uL RBC (4.00-5.50) x10^6/uL Hgb (12.0-16.0) g/dL Hct (33.0-47.0) % MCV (78.0-93.0) fL MCH (26.0-32.0) pg MCHC (32.0-36.0) g/dL RDW Coeff of Radha (10.0-15.0) % Plt Count (130-400) x10^3/uL Neut % (Auto) (50.0-80.0) % Lymph % (Auto) (25.0-50.0) % [place] % (Auto) (2.0-11.0) % Eos % (Auto) (0.0-4.0) % Baso % (Auto) (0.2-1.2) % PT (9.9-12.5) SEC INR (2.0-3.5) APTT (25.6-32.8) SEC Sodium (136-145) mmol/L Potassium (3.5-5.1) mmol/L Chloride (98-107) mmol/L Carbon Dioxide (21-32) mmol/L Anion Gap (5-15) mmol/L BUN (7-18) mg/dL Creatinine (0.55-1.02) mg/dL Est Cr Clr Drug Dosing Estimated GFR (MDRD) Glucose (70-99) mg/dL Calcium (8.5-10.1) mg/dL Corrected Calcium (8.5-10.1) mg/dL Total Bilirubin (0.2-1.0) mg/dL AST (15-37) U/L ALT (14-59) U/L Alkaline Phosphatase (46-116) U/L Troponin I High Sens 37 36 (<=51) ng/L C-Reactive Protein (<=0.9) mg/dL NT-Pro-B Natriuret Pep (<=450) pg/mL Total Protein (6.4-8.2) g/dL Albumin (3.4-5.0) g/dL Globulin Albumin/Globulin Ratio SARS CoV-2 RNA Rapid AKILAH Negative (NEGATIVE) 05/12/21 05/12/21 Range/Units 06:10 06:10 WBC 4.7 (4.0-10.0) x10^3/uL RBC 3.46 L (4.00-5.50) x10^6/uL Hgb 11.0 L (12.0-16.0) g/dL Hct 32.6 L (33.0-47.0) % MCV 94.2 H (78.0-93.0) fL MCH 31.8 (26.0-32.0) pg MCHC 33.7 (32.0-36.0) g/dL RDW Coeff of Radha 13.4 (10.0-15.0) % Plt Count 198 (130-400) x10^3/uL Neut % (Auto) 38.3 L (50.0-80.0) % Lymph % (Auto) 45.8 (25.0-50.0) % [place] % (Auto) 11.2 H (2.0-11.0) % Eos % (Auto) 4.1 H (0.0-4.0) % Baso % (Auto) 0.6 (0.2-1.2) % PT (9.9-12.5) SEC INR (2.0-3.5) APTT (25.6-32.8) SEC Sodium 141 (136-145) mmol/L Potassium 3.6 (3.5-5.1) mmol/L Chloride 107 (98-107) mmol/L Carbon Dioxide 27 (21-32) mmol/L Anion Gap 10.6 (5-15) mmol/L BUN 13 (7-18) mg/dL Creatinine 0.8 (0.55-1.02) mg/dL Est Cr Clr Drug Dosing 56.88 Estimated GFR (MDRD) > 60 Glucose 95 (70-99) mg/dL Calcium 8.6 (8.5-10.1) mg/dL Corrected Calcium (8.5-10.1) mg/dL Total Bilirubin (0.2-1.0) mg/dL AST (15-37) U/L ALT (14-59) U/L Alkaline Phosphatase (46-116) U/L Troponin I High Sens (<=51) ng/L C-Reactive Protein (<=0.9) mg/dL NT-Pro-B Natriuret Pep (<=450) pg/mL Total Protein (6.4-8.2) g/dL Albumin (3.4-5.0) g/dL Globulin Albumin/Globulin Ratio SARS CoV-2 RNA Rapid AKILAH (NEGATIVE) Med Orders - Current: Current Medications Amlodipine Besylate (Amlodipine 10 Mg Tab) 10 mg PO BEDTIME [facility] Aspirin (Aspirin 81 Mg Tab.Ec) 81 mg PO DAILY [facility] Last Admin: 05/12/21 08:09 Dose: 81 mg Documented by: Atorvastatin Calcium (Atorvastatin 40 Mg Tab) 40 mg PO DAILY [facility] Last Admin: 05/12/21 08:09 Dose: 40 mg Documented by: Clopidogrel Bisulfate (Clopidogrel 75 Mg Tab) 75 mg PO DAILY [facility] Last Admin: 05/12/21 08:09 Dose: 75 mg Documented by: Famotidine (Famotidine 20 Mg Tab) 20 mg PO BEDTIME [facility] Isosorbide Mononitrate (Isosorbide Mononitrate 60 Mg Tab.Er) 120 mg PO DAILY [facility] Last Admin: 05/12/21 08:09 Dose: 120 mg Documented by: Melatonin (Melatonin 3 Mg Tab) 3 mg PO BEDTIME PRN PRN Reason: Insomnia Metoprolol Succinate (Metoprolol Succinate 25 Mg Tab.Er) 25 mg PO DAILY [facility] Last Admin: 05/12/21 08:10 Dose: 25 mg Documented by: Nitroglycerin (Nitroglycerin 0.4 Mg Tab.Sl) 0.4 mg SL Q5M PRN PRN Reason: Chest Pain Last Admin: 05/12/21 08:13 Dose: 0.4 mg Documented by: Sodium Chloride (Sodium Chloride 0.9% 10 Ml Syringe) 10 ml FLUSH ASDIRECTED PRN PRN Reason: Keep Vein Open Discontinued Medications Al Hydroxide/Mg Hydroxide (Gi Cocktail Oral Solution 30 Ml) 30 ml PO ONETIME STA Stop: 05/12/21 12:39 Aspirin (Aspirin 81 Mg Tab.Chew) 243 mg PO ONETIME ONE Stop: 05/11/21 23:14 Last Admin: 05/11/21 23:23 Dose: 243 mg Documented by: Comments:: Troponins for a total of 3 throughout the night are normal. When I go to see the patient she is ambulating in the hallway she is alert appropriate denying any chest discomfort. After sitting and visiting with her for about 15 minutes she expresses quite a bit of concern about her recurrent chest pain and she develops similar tightness across her chest. Up into her neck. No shortness of breath. This happened about 15 to 20 minutes after ambulation. While she was just sitting visiting with me in the room. I wonder if there is not some component of anxiety related to this that she relates as well. - Exam General: Alert, Oriented HEENT: Pupils Equal, Pupils Reactive Neck: Supple Lungs: Clear to Auscultation, Normal Respiratory Effort Cardiovascular: Regular Rate, Regular Rhythm GI/Abdominal Exam: Normal Bowel Sounds, Soft, Non-Tender (Female) Exam: Deferred Back Exam: Normal Inspection Extremities: Normal Inspection, Normal Range of Motion, Non-Tender, No Pedal Edema Peripheral Pulses: 2+: Radial (L), Radial (R), Posterior Tibial (L), Posterior Tibial (R), Dorsalis Pedis (L), Dorsalis Pedis (R) Skin: Warm, Dry, Intact Neurological: No New Focal Deficit Psy/Mental Status: Alert, Normal Affect, Normal Mood - Patient Data Lab Results Last 24 hrs: Laboratory Results - last 24 hr 05/11/21 05/11/21 05/11/21 Range/Units 23:10 23:10 23:10 WBC 6.6 (4.0-10.0) x10^3/uL RBC 3.74 L (4.00-5.50) x10^6/uL Hgb 11.9 L (12.0-16.0) g/dL Hct 34.7 (33.0-47.0) % MCV 92.8 (78.0-93.0) fL MCH 31.8 (26.0-32.0) pg MCHC 34.3 (32.0-36.0) g/dL RDW Coeff of Radha 13.4 (10.0-15.0) % Plt Count 215 (130-400) x10^3/uL Neut % (Auto) 33.1 L (50.0-80.0) % Lymph % (Auto) 51.7 H (25.0-50.0) % [place] % (Auto) 11.3 H (2.0-11.0) % Eos % (Auto) 3.4 (0.0-4.0) % Baso % (Auto) 0.5 (0.2-1.2) % PT 9.6 L (9.9-12.5) SEC INR 0.9 L (2.0-3.5) APTT 22.7 L (25.6-32.8) SEC Sodium 140 (136-145) mmol/L Potassium 3.7 (3.5-5.1) mmol/L Chloride 106 (98-107) mmol/L Carbon Dioxide 26 (21-32) mmol/L Anion Gap 11.7 (5-15) mmol/L BUN 17 (7-18) mg/dL Creatinine 0.9 (0.55-1.02) mg/dL Est Cr Clr Drug Dosing TNP Estimated GFR (MDRD) > 60 Glucose 96 (70-99) mg/dL Calcium 8.7 (8.5-10.1) mg/dL Corrected Calcium 8.7 (8.5-10.1) mg/dL Total Bilirubin 0.3 (0.2-1.0) mg/dL AST 22 (15-37) U/L ALT 13 L (14-59) U/L Alkaline Phosphatase 75 (46-116) U/L Troponin I High Sens 36 (<=51) ng/L C-Reactive Protein < 0.2 (<=0.9) mg/dL NT-Pro-B Natriuret Pep 420 (<=450) pg/mL Total Protein 7.5 (6.4-8.2) g/dL Albumin 4.0 (3.4-5.0) g/dL Globulin 3.5 Albumin/Globulin Ratio 1.14 SARS CoV-2 RNA Rapid AKILAH (NEGATIVE) 05/12/21 05/12/21 05/12/21 Range/Units 00:05 02:00 06:10 WBC (4.0-10.0) x10^3/uL RBC (4.00-5.50) x10^6/uL Hgb (12.0-16.0) g/dL Hct (33.0-47.0) % MCV (78.0-93.0) fL MCH (26.0-32.0) pg MCHC (32.0-36.0) g/dL RDW Coeff of Radha (10.0-15.0) % Plt Count (130-400) x10^3/uL Neut % (Auto) (50.0-80.0) % Lymph % (Auto) (25.0-50.0) % [place] % (Auto) (2.0-11.0) % Eos % (Auto) (0.0-4.0) % Baso % (Auto) (0.2-1.2) % PT (9.9-12.5) SEC INR (2.0-3.5) APTT (25.6-32.8) SEC Sodium (136-145) mmol/L Potassium (3.5-5.1) mmol/L Chloride (98-107) mmol/L Carbon Dioxide (21-32) mmol/L Anion Gap (5-15) mmol/L BUN (7-18) mg/dL Creatinine (0.55-1.02) mg/dL Est Cr Clr Drug Dosing Estimated GFR (MDRD) Glucose (70-99) mg/dL Calcium (8.5-10.1) mg/dL Corrected Calcium (8.5-10.1) mg/dL Total Bilirubin (0.2-1.0) mg/dL AST (15-37) U/L ALT (14-59) U/L Alkaline Phosphatase (46-116) U/L Troponin I High Sens 37 36 (<=51) ng/L C-Reactive Protein (<=0.9) mg/dL NT-Pro-B Natriuret Pep (<=450) pg/mL Total Protein (6.4-8.2) g/dL Albumin (3.4-5.0) g/dL Globulin Albumin/Globulin Ratio SARS CoV-2 RNA Rapid AKILAH Negative (NEGATIVE) 05/12/21 05/12/21 Range/Units 06:10 06:10 WBC 4.7 (4.0-10.0) x10^3/uL RBC 3.46 L (4.00-5.50) x10^6/uL Hgb 11.0 L (12.0-16.0) g/dL Hct 32.6 L (33.0-47.0) % MCV 94.2 H (78.0-93.0) fL MCH 31.8 (26.0-32.0) pg MCHC 33.7 (32.0-36.0) g/dL RDW Coeff of Radha 13.4 (10.0-15.0) % Plt Count 198 (130-400) x10^3/uL Neut % (Auto) 38.3 L (50.0-80.0) % Lymph % (Auto) 45.8 (25.0-50.0) % [place] % (Auto) 11.2 H (2.0-11.0) % Eos % (Auto) 4.1 H (0.0-4.0) % Baso % (Auto) 0.6 (0.2-1.2) % PT (9.9-12.5) SEC INR (2.0-3.5) APTT (25.6-32.8) SEC Sodium 141 (136-145) mmol/L Potassium 3.6 (3.5-5.1) mmol/L Chloride 107 (98-107) mmol/L Carbon Dioxide 27 (21-32) mmol/L Anion Gap 10.6 (5-15) mmol/L BUN 13 (7-18) mg/dL Creatinine 0.8 (0.55-1.02) mg/dL Est Cr Clr Drug Dosing 56.88 Estimated GFR (MDRD) > 60 Glucose 95 (70-99) mg/dL Calcium 8.6 (8.5-10.1) mg/dL Corrected Calcium (8.5-10.1) mg/dL Total Bilirubin (0.2-1.0) mg/dL AST (15-37) U/L ALT (14-59) U/L Alkaline Phosphatase (46-116) U/L Troponin I High Sens (<=51) ng/L C-Reactive Protein (<=0.9) mg/dL NT-Pro-B Natriuret Pep (<=450) pg/mL Total Protein (6.4-8.2) g/dL Albumin (3.4-5.0) g/dL Globulin Albumin/Globulin Ratio SARS CoV-2 RNA Rapid AKILAH (NEGATIVE) Result Diagrams: 05/12/21 06:10 05/12/21 06:10 Sepsis Event Note - Evaluation Sepsis Screening Result: No Definite Risk - Focused Exam Vital Signs: Vital Signs Temp Pulse Pulse Pulse Resp BP BP 05/12/21 11:20 98.3 F 63 20 117/63 05/12/21 11:04 96.6 F L 52 L 16 96/53 L 05/12/21 10:00 96.6 F L 52 L 16 96/53 L 05/12/21 08:13 137/57 L 05/12/21 08:10 67 67 138/57 L 138/57 L 05/12/21 06:25 96 F L 57 L 16 102/56 L 05/12/21 00:52 96.3 F L 60 16 141/68 H Pulse Ox 05/12/21 11:20 93 L 05/12/21 11:04 93 L 05/12/21 10:00 93 L 05/12/21 08:13 05/12/21 08:10 05/12/21 06:25 96 05/12/21 00:52 98 - Problem List & Annotations (1) Essential hypertension SNOMED Code(s): 74615267 Code(s): I10 - ESSENTIAL (PRIMARY) HYPERTENSION Status: Acute Current Visit: Yes Annotation/Comment:: Blood pressure was a little low this morning although this was after nitroglycerin increase of her Imdur as well as her metoprolol. These were all given within a short period of time. Blood pressure was 93/53. About an hour later it was 115/63. I will not make any changes to her regimen at this time as this is most likely caused by the nitroglycerin that was given is the same time as her metoprolol and her increased Imdur. We will monitor overnight. (2) Hyperlipidemia SNOMED Code(s): 29417784 Code(s): E78.5 - HYPERLIPIDEMIA, UNSPECIFIED Status: Acute Current Visit: Yes Annotation/Comment:: We will continue her Crestor 20 mg daily. Most recent cholesterol panel from 02-02-21 total cholesterol 132, triglycerides 63 HDL 52 LDL 67 (3) Unstable angina SNOMED Code(s): 7333921, 057776954 Code(s): I20.0 - UNSTABLE ANGINA Status: Acute Current Visit: Yes Annotation/Comment:: Trops negative during the night. She did not have any symptoms of chest pain or pressure. Although this morning about 8:00 she after ambulating around the nursing department about 20-30 minutes had similar symptoms of last night of waxing and waning left and right anterior heaviness on her chest that goes up into her neck. Nothing into her shoulder and left arm. Different than last night this is waxing and waning not constant. This happened when she was at rest. She did receive a nitroglycerin this morning with resolution. I did discuss this case with the patients PCP Dr. Romero La who sent a note to her internet marketing intern as well and the patient is asking about a CABG. At this time we will continue to monitor. EKG repeated at 1300 hrs unchanged from previous. We will try a GI cocktail at this time and trend her troponins again. Could have an anxiety component as well that even the patient relates. (4) Hypotension due to medication Status: Acute Current Visit: Yes Annotation/Comment:: This morning she had a systolic blood pressure of 93/53. She had received a sublingual nitro as well as an increase in her Imdur to 120 mg as well as her metoprolol all within 5 minutes this morning. She was asymptomatic with this. This is most likely due to the nitroglycerin. About an hour later her blood pressure had improved to the 1 teens systolically. We will continue to monitor as this is most likely due to the nitro and the increased Imdur and she was asymptomatic with this. - Problem List Review Problem List Initiated/Reviewed/Updated: No - My Orders Last 24 Hours: My Active Orders 05/11/21 23:11 Sodium Chloride 0.9% [Saline Flush] 10 ml FLUSH ASDIRECTED PRN Peripheral IV Insertion Adult [OM.PC] Stat 05/11/21 23:12 EKG 12 Lead [EKG Documentation Completion] [RC] STAT 05/12/21 00:26 Admission Status [Patient Status] [ADT] Routine 05/12/21 00:53 Height and Weight [RC] 06 Oxygen Therapy [RC] 08,20 Up With Assistance [RC] 08,20 VTE/DVT Education [RC] 08 Vital Signs [RC] 02,06,10,14,18,22 Resuscitation Status Routine 05/12/21 00:54 Antiembolic Devices [RC] 08,20 Cardiac Monitoring [RC] 02,06,10,14,18,22 Intake and Output [RC] 06,18 Notify Provider Vital Signs [RC] .PRN Antiembolic Hose [OM.PC] Per Unit Routine 05/12/21 00:56 Notify Provider [RC] .PRN Nitroglycerin [Nitrostat] 0.4 mg SL Q5M PRN 05/12/21 00:57 Melatonin 3 mg PO BEDTIME PRN 05/12/21 Breakfast Heart Healthy Diet [DIET] 05/12/21 08:00 Aspirin [Halfprin] 81 mg PO DAILY Clopidogrel [Plavix] 75 mg PO DAILY Isosorbide Mononitrate [Imdur] 120 mg PO DAILY Metoprolol Succinate [Toprol XL] 25 mg PO DAILY atorvaSTATin [Lipitor] 40 mg PO DAILY 05/12/21 12:37 EKG 12 Lead [EKG Documentation Completion] [RC] ASDIRECTED 05/12/21 12:38 TROPONIN I HIGH SENSITIVITY [CHEM] Routine 05/12/21 20:00 Famotidine [Pepcid] 20 mg PO BEDTIME amLODIPine [Norvasc] 10 mg PO BEDTIME - Assessment Assessment:: A/P Will continue the observation. EKG repeated at this time without any change. Some norris cardia. Will repeat trending of troponins. Will also try a GI Cocktail at this time. Sepsis: No signs of sepsis at this time. VTE: Continue TEDs at this time. Code status: Full Code. Plan on discharge tomorrow if BP is stable and troponins are negative. Will also plan on phone consult cardiology prior to discharge tomorrow.
--- NOTE | 2021-05-12 13:27 | PCM.EKG ---
#1 Interpretation EKG Date: 05/12/21 Time: 13:04 Rhythm: NSR Rate (Beats/Min): 57 [place]: Normal P-Wave: Present QRS: Normal ST-T: Normal QT: Normal Comparison: No Change
[2021-05-12] MEDS ORDERED: amLODIPine 10 MG Tab PO SCH (20:00)
[2021-05-12] MEDS ORDERED: Famotidine 20 MG Tab PO SCH (20:00)
[2021-05-13] MEDS: Clopidogrel 75 MG Tab PO SCH (08:54)
[2021-05-13] MEDS: atorvaSTATin 40 MG Tab PO SCH (08:54)
[2021-05-13] MEDS: Aspirin 81 MG Tab.EC PO SCH (08:54)
[2021-05-13] MEDS: Metoprolol Succinate 25 MG Tab.ER PO SCH (08:55)
[2021-05-13] MEDS: Isosorbide Mononitrate 60 MG Tab.ER PO SCH (08:55)
[2021-05-13 08:57] VITALS: BP 118/59; PULSE 63
[2021-05-13 10:00] LABS: CHLORIDE,CL 103 mmol/L (98-107); SODIUM,NA 139 mmol/L (136-145)
[2021-05-13 10:13] LABS: ANION GAP 11.1 mmol/L (5-15)
--- NOTE | 2021-05-13 11:59 | PCM.DCSUM1 ---
Discharge Summary - Hospital Course Brief History: Patient was admitted in the hospital from the emergency department for unstable angina. 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 She had an medically managed RCA lesion at about 90%. Diagnosis: Stroke: No - Discharge Data Discharge Date: 05/13/21 Discharge Disposition: Home, Self-Care 01 Condition: Good - Referral to Home Health Primary Care Physician: Janeen La, DO - Discharge Diagnosis/Problem(s) (1) Essential hypertension SNOMED Code(s): 33500039 ICD Code: I10 - ESSENTIAL (PRIMARY) HYPERTENSION Status: Acute Problem Details: She has tolerated the Imdur 120 mg increase from 90 mg. Her blood pressure is in the 120s systolically. She is not lightheaded weak or dizzy with this. We will continue her Imdur at home 120 mg daily. We will continue her other metoprolol as well as her amlodipine. (2) Hyperlipidemia SNOMED Code(s): 11101709 ICD Code: E78.5 - HYPERLIPIDEMIA, UNSPECIFIED Status: Acute Problem Details: This is stable and will continue her home Crestor (3) Unstable angina SNOMED Code(s): 9993833, 486699231 ICD Code: I20.0 - UNSTABLE ANGINA Status: Acute Problem Details: She has not had any the symptoms of the shoulder blade back pain or arm pain since the initiation of the Imdur. She does have this waxing and waning tightness in the epigastric region at none stress times and resolves when ambulating. Resolves on its own. I wonder if this is not some other pathology other than cardiac in nature. She has had multiple troponins that have all been negative. We have sent a note to her primary lay out former in [place] about the patient's concern of a CABG we have not heard any response yet. We will discharge her home at this time. We did discuss with her the importance of how to use her nitro and not get up and walk around after using it. There was a lot of questions that she had about her chest pain as well that were answered. (4) Hypotension due to medication Status: Acute Problem Details: There has been no evidence of hypotension since yesterday. This is most likely due to the nitroglycerin that was given at the same time of the increased Imdur as well as her daily metoprolol. She is asymptomatic her blood pressure is well controlled in the 120s systolically. - Patient Summary/Data Hospital Course: This patient was admitted in the emergency department to observation for concerns of unstable angina. Patient has an extensive recent cardiac history where she received a stent in the LAD in January and had a balloon angioplasty of this earlier this month with an in-stent restenosis. She has a 90% occlusion of her right RCA that is not amendable to intervention and medical therapy has been the mainstay of therapy for this. She had negative troponins in the emergency department. Although there was concerns for unstable angina as she was having chest pressure as well as left shoulder blade and arm pain at rest. She had no change in her EKG after multiple repeats. She had multiple trending's of her troponin while she was in the hospital over the past 2 days and these of all been negative. She did not have any recurrence of the back pain shoulder pain or arm pain although she did have this intermittent tightness in her chest which happens at rest but does resolve when she stands up and walks around. She never has any back shoulder blade or arm pain and I wonder if this tightness in her chest is not other pathology other than cardiac in nature. Her Imdur was increased from 90 mg daily to 120 mg her blood pressure improved and her shoulder blade arm pain and back pain which is most likely her anginal type symptoms have not reoccurred. We will continue with her Crestor at home. Close follow-up in the clinic this week. The patient is also considering a CABG herself we are waiting for cardiology response on this. She will be discharged home on continued home therapy as previous and an increase of her Imdur from 90 mg to 120 mg. - Patient Instructions Diet: Heart Healthy Diet Other/Special Instructions: Continue with all previous therapies as well as your exercise. Increase your Imdur to 120mg daily. May use up your home prescription making sure a total dose of 120mg and then a new prescription has been sent to your pharmacy. Follow up with Dr. Romero La next week as already scheduled. Nitro as needed recheck if does not resolve your chest pain. - Discharge Plan *PRESCRIPTION DRUG MONITORING PROGRAM REVIEWED*: Not Applicable *COPY OF PRESCRIPTION DRUG MONITORING REPORT IN PATIENT YAMILEX: Not Applicable Prescriptions/Med Rec: Isosorbide Mononitrate [Imdur] 120 mg PO DAILY #30 tab.er Home Medications: Home Meds Aspirin [Ecotrin EC] 81 mg PO DAILY 09/26/14 [History] Acetaminophen/Diphenhydramine [Tylenol Pm Ex-Strength Caplet] 2 tab PO BEDTIME P RN 12/31/19 [History] Melatonin 3 mg PO BEDTIME PRN 12/31/19 [History] diphenhydrAMINE [Benadryl] 25 - 50 mg PO ASDIRECTED PRN 12/31/19 [History] Rosuvastatin [Crestor] 10 mg PO DAILY 01/28/21 [History] amLODIPine [Norvasc] 10 mg PO DAILY 01/28/21 [History] Metoprolol Succinate [Toprol XL] 25 mg PO DAILY #30 tab.er 01/29/21 [Rx] Clopidogrel [Plavix] 75 mg PO DAILY 05/11/21 [History] Famotidine 20 mg PO BEDTIME 05/11/21 [History] Nitroglycerin [Nitrostat] 0.4 mg SL ASDIRECTED PRN 05/11/21 [History] Isosorbide Mononitrate [Imdur] 120 mg PO DAILY #30 tab.er 05/13/21 [Rx] Nitroglycerin [Nitrostat] 0.4 mg SL Q5M PRN tab.sl 05/13/21 [Rx] Patient Handouts: Nitroglycerin sublingual tablets, Angina, [id number] Forms: ED Department Discharge Referrals: Janeen La DO [Primary Care Provider] - - Discharge Summary/Plan Comment DC Time >30 min.: Yes - General Info Date of Service: 05/13/21 Admission Dx/Problem (Free Text: Unstable angina CAD SP stenting and [place] angio Subjective Update: This patient feels quite a bit better today. She has been ambulatory around the hospital quite a bit. She has had no chest pain or shortness of breath with any of her ambulation. She does have this intermittent very faint tightness in her epigastric region when she is just sitting watching TV. This happens for about 30 seconds to a minute and resolves on its own. Does not happen when she is up ambulatory. Even when she is having this discomfort she has ambulated multiple times and it actually gets better. She has had no shortness of breath fever chills cough or congestion. She feels quite a bit better than she did yesterday. She has had no pain in her shoulder blade or her left arm which was more concerning to her that brought her into the emergency department 2 days ago. She has been eating and drinking well. Urinating and having bowel movements without discomfort Functional Status: Reports: Pain Controlled - Patient Data Vitals - Most Recent: Last Vital Signs Temp 98 F 05/13/21 05:57 Pulse 63 05/13/21 08:55 Resp 16 05/13/21 05:57 BP 118/59 L 05/13/21 08:55 Pulse Ox 94 L 05/13/21 05:57 Weight - Most Recent: 140 lb 9.6 oz I&O - Last 24 hours: Intake & Output 05/12/21 05/13/21 05/13/21 22:59 06:59 14:59 Intake Total 380 220 480 Output Total 850 Balance 380 -630 480 Lab Results - Last 24 hrs: Laboratory Results - last 24 hr 05/12/21 05/12/21 05/12/21 Range/Units 12:52 15:50 18:50 WBC (4.0-10.0) x10^3/uL RBC (4.00-5.50) x10^6/uL Hgb (12.0-16.0) g/dL Hct (33.0-47.0) % MCV (78.0-93.0) fL MCH (26.0-32.0) pg MCHC (32.0-36.0) g/dL RDW Coeff of Radha (10.0-15.0) % Plt Count (130-400) x10^3/uL Neut % (Auto) (50.0-80.0) % Lymph % (Auto) (25.0-50.0) % Bradford % (Auto) (2.0-11.0) % Eos % (Auto) (0.0-4.0) % Baso % (Auto) (0.2-1.2) % Sodium (136-145) mmol/L Potassium (3.5-5.1) mmol/L Chloride (98-107) mmol/L Carbon Dioxide (21-32) mmol/L Anion Gap (5-15) mmol/L BUN (7-18) mg/dL Creatinine (0.55-1.02) mg/dL Est Cr Clr Drug Dosing mL/min Estimated GFR (MDRD) Glucose (70-99) mg/dL Calcium (8.5-10.1) mg/dL Troponin I High Sens 31 27 26 (<=51) ng/L 05/13/21 05/13/21 Range/Units 09:33 09:33 WBC 4.5 (4.0-10.0) x10^3/uL RBC 3.80 L (4.00-5.50) x10^6/uL Hgb 12.1 (12.0-16.0) g/dL Hct 36.1 (33.0-47.0) % MCV 95.0 H (78.0-93.0) fL MCH 31.8 (26.0-32.0) pg MCHC 33.5 (32.0-36.0) g/dL RDW Coeff of Radha 13.4 (10.0-15.0) % Plt Count 203 (130-400) x10^3/uL Neut % (Auto) 42.2 L (50.0-80.0) % Lymph % (Auto) 42.2 (25.0-50.0) % Bradford % (Auto) 11.7 H (2.0-11.0) % Eos % (Auto) 3.5 (0.0-4.0) % Baso % (Auto) 0.4 (0.2-1.2) % Sodium 139 (136-145) mmol/L Potassium 4.1 (3.5-5.1) mmol/L Chloride 103 (98-107) mmol/L Carbon Dioxide 29 (21-32) mmol/L Anion Gap 11.1 (5-15) mmol/L BUN 16 (7-18) mg/dL Creatinine 0.8 (0.55-1.02) mg/dL Est Cr Clr Drug Dosing 56.88 mL/min Estimated GFR (MDRD) > 60 Glucose 94 (70-99) mg/dL Calcium 8.8 (8.5-10.1) mg/dL Troponin I High Sens 18 (<=51) ng/L Med Orders - Current: Current Medications Amlodipine Besylate (Amlodipine 10 Mg Tab) 10 mg PO BEDTIME [facility] Last Admin: 05/12/21 20:31 Dose: 10 mg Documented by: Aspirin (Aspirin 81 Mg Tab.Ec) 81 mg PO DAILY [facility] Last Admin: 05/13/21 08:54 Dose: 81 mg Documented by: Atorvastatin Calcium (Atorvastatin 40 Mg Tab) 40 mg PO DAILY [facility] Last Admin: 05/13/21 08:54 Dose: 40 mg Documented by: Clopidogrel Bisulfate (Clopidogrel 75 Mg Tab) 75 mg PO DAILY [facility] Last Admin: 05/13/21 08:54 Dose: 75 mg Documented by: Famotidine (Famotidine 20 Mg Tab) 20 mg PO BEDTIME [facility] Last Admin: 05/12/21 20:32 Dose: 20 mg Documented by: Isosorbide Mononitrate (Isosorbide Mononitrate 60 Mg Tab.Er) 120 mg PO DAILY [facility] Last Admin: 05/13/21 08:55 Dose: 120 mg Documented by: Melatonin (Melatonin 3 Mg Tab) 3 mg PO BEDTIME PRN PRN Reason: Insomnia Metoprolol Succinate (Metoprolol Succinate 25 Mg Tab.Er) 25 mg PO DAILY [facility] Last Admin: 05/13/21 08:55 Dose: 25 mg Documented by: Nitroglycerin (Nitroglycerin 0.4 Mg Tab.Sl) 0.4 mg SL Q5M PRN PRN Reason: Chest Pain Last Admin: 05/12/21 08:13 Dose: 0.4 mg Documented by: Sodium Chloride (Sodium Chloride 0.9% 10 Ml Syringe) 10 ml FLUSH ASDIRECTED PRN PRN Reason: Keep Vein Open Last Admin: 05/12/21 20:34 Dose: 10 ml Documented by: Discontinued Medications Al Hydroxide/Mg Hydroxide (Gi Cocktail Oral Solution 30 Ml) 30 ml PO ONETIME STA Stop: 05/12/21 12:39 Last Admin: 05/12/21 12:53 Dose: 30 ml Documented by: Aspirin (Aspirin 81 Mg Tab.Chew) 243 mg PO ONETIME ONE Stop: 05/11/21 23:14 Last Admin: 05/11/21 23:23 Dose: 243 mg Documented by: - Exam General: Reports: Alert, Oriented HEENT: Reports: Pupils Equal, Pupils Reactive Neck: Reports: Supple Lungs: Reports: Clear to Auscultation, Normal Respiratory Effort Cardiovascular: Reports: Regular Rate, Regular Rhythm GI/Abdominal Exam: Normal Bowel Sounds, Soft, Non-Tender (Female) Exam: Deferred Rectal (Female) Exam: Deferred Back Exam: Reports: Normal Inspection Extremities: Normal Inspection, Normal Range of Motion, No Pedal Edema, Normal Capillary Refill Skin: Reports: Warm, Dry, Intact Neurological: Reports: No New Focal Deficit Psy/Mental Status: Reports: Alert, Normal Affect, Normal Mood
== END 2021-05-13 12:53 | disposition home or self-care (01) ==
LOC: VM.ED 22:55 → VM.MS 05-12 00:38
PROVIDERS: ADMIT Nurse Practitioner Family; ATTEND Nurse Practitioner Family
DX: I25.110 Atherosclerotic heart disease of native coronary artery with unstable angina pectoris (principal); I10 Essential (primary) hypertension; I25.2 Old myocardial infarction; E78.5 Hyperlipidemia, unspecified; E78.00 Pure hypercholesterolemia, unspecified; I95.2 Hypotension due to drugs; Z82.79 Family history of other congenital malformations, deformations and chromosomal abnormalities; Z20.822 Contact with and (suspected) exposure to COVID-19; Z95.5 Presence of coronary angioplasty implant and graft; Z79.82 Long term (current) use of aspirin; Z79.899 Other long term (current) drug therapy; Z98.890 Other specified postprocedural states
CPT/HCPCS: 36415; 71046; 80048; 80053; 83880; 84484; 85025; 85610; 85730; 86140; 93005; 99217; 99220; 99285-25; A9270-GY; G0378; U0002

== ENCOUNTER 2023-06-19 00:23 | Emergency (ER) | payer MEDICARE ==
[2023-06-19] MEDS ORDERED: Magnesium Hydroxide 400 MG/5 ML Susp 30 ML Cup PO ONE (02:02)
[2023-06-19 02:36] VITALS: BP 123/65; PULSE 66
== END 2023-06-19 02:15 | disposition home or self-care (01) ==
LOC: VM.ED 00:23
DX: K59.01 Slow transit constipation (principal); I25.119 Atherosclerotic heart disease of native coronary artery with unspecified angina pectoris; E78.00 Pure hypercholesterolemia, unspecified; I10 Essential (primary) hypertension; Z79.82 Long term (current) use of aspirin; Z79.899 Other long term (current) drug therapy
CPT/HCPCS: 99283; A9270

== ENCOUNTER 2024-05-21 19:37 | Emergency (ER) | payer MEDICARE ==
[2024-05-21] MEDS ORDERED: Sodium Chloride 0.9% 10 ML Syringe FLUSH PRN (19:43)
[2024-05-21 19:54] LABS: BASOPHILS PERCENT AUTO 0.5 % (0.2-1.2); EOSINOPHILS ABSOLUTE AUTO 0.6 x10^3/uL (0.0-0.5); EOSINOPHILS PERCENT AUTO 6.6 % (0.0-4.0); HEMATOCRIT 31.8 % (33.0-47.0); IMMATURE GRAN ABSOLUTE AUTO 0.01 x10^3/uL (0.00-0.07); LYMPHOCYTES ABSOLUTE AUTO 2.2 x10^3/uL (1.0-4.8); LYMPHOCYTES PERCENT AUTO 26.1 % (25.0-50.0); MEAN CORPUSCULAR HEMOGLOBIN 35.6 pg (26.0-32.0); MEAN CORPUSCULAR HGB CONC 34.6 g/dL (32.0-36.0); MEAN CORPUSCULAR VOLUME 102.9 fL (78.0-93.0); MONOCYTES ABSOLUTE AUTO 0.7 x10^3/uL (0.0-0.8); MONOCYTES PERCENT AUTO 7.9 % (2.0-11.0); NEUTROPHILS ABSOLUTE AUTO 4.9 x10^3/uL (1.8-7.7); NEUTROPHILS PERCENT AUTO 58.8 % (50.0-80.0); PLATELET COUNT,PLT 278 x10^3/uL (130-400); RED BLOOD CELL COUNT 3.09 x10^6/uL (4.00-5.50); WHITE BLOOD CELL COUNT,WBC 8.3 x10^3/uL (4.0-10.0)
[2024-05-21 20:07] LABS: PTT,PARTIAL THROMBOPLSTIN TIME 23.4 SEC (21.9-33.8)
[2024-05-21 20:18] LABS: A/G RATIO 1.08; ALANINE AMINOTRANSFERASE,ALT 31 U/L (14-59); ALBUMIN 3.9 g/dL (3.4-5.0); ALKALINE PHOSPHATASE 127 U/L (46-116); ASPARTATE AMNIOTRANSFERASE,AST 30 U/L (15-37); BILIRUBIN TOTAL 0.2 mg/dL (0.2-1.0); BLOOD UREA NITROGEN,BUN 13 mg/dL (7-18); CALCIUM 8.8 mg/dL (8.5-10.1); CARBON DIOXIDE,CO2 25 mmol/L (21-32); CHLORIDE,CL 104 mmol/L (98-107); CREATININE 1.3 mg/dL (0.55-1.02); GLUCOSE RANDOM 116 mg/dL (70-99); PHOSPHORUS 3.3 mg/dL (2.6-4.7); POTASSIUM,K 3.8 mmol/L (3.5-5.1); PROTEIN TOTAL,TP 7.5 g/dL (6.4-8.2); SODIUM,NA 139 mmol/L (136-145); TSH ULTRASENSITIVE 8.963 uIU/mL (0.358-3.74)
[2024-05-21 20:20] LABS: ANION GAP 13.8 mmol/L (5-15); C-REACTIVE PROTEIN < 0.50 mg/dL (<=0.50); ESTIMATED GFR 42 mL/min (>=60)
[2024-05-21 21:03] VITALS: BP 135/54; PULSE 50
== END 2024-05-21 20:50 | disposition home or self-care (01) ==
LOC: VM.ED 19:37
DX: R07.89 Other chest pain (principal); I10 Essential (primary) hypertension; I25.10 Atherosclerotic heart disease of native coronary artery without angina pectoris; E78.00 Pure hypercholesterolemia, unspecified; Z95.5 Presence of coronary angioplasty implant and graft; Z90.49 Acquired absence of other specified parts of digestive tract; Z79.82 Long term (current) use of aspirin; Z79.899 Other long term (current) drug therapy
CPT/HCPCS: 36415; 71045; 80053; 84100; 84443; 84484; 85025; 85610; 85730; 86140; 93005; 93010; 99284; 99285